=== PATIENT | male | born 1935 | race Caucasian/White ===

== ENCOUNTER 2017-10-21 19:03 | Emergency (ER) | payer MEDICARE ==
[~2017-10-21] VITALS: Ht 170.2 cm; Wt 65.5 kg
[~2017-10-21 19:03] MED LIST: BAYER CHEWABLE81 MG PO; DUONEB 2.5-0.5 M3 ML INH; FERROUS SULFAT325 MG PO; IMDUR30 MG PO; KLOR-CON M2020 MEQ PO; LANOXIN125 MCG PO; LASIX40 MG PO; LEVAQUIN500 MG PO; MEDROL DOSE PACK4 MG PO; MIRALAX17 GM PO; NORCO 10/325 TA1 TA1 PO; PLAVIX75 MG PO; PROTONIX20 MG PO; QVAR8.7 GM INH; RESTORIL15 MG PO; ROBITUSSIN100 MG/5 M PO; SINGULAIR10 MG; VENTOLIN HFA18 GM INH; VITAMIN B-1000 MCG/M IM; XANAX0.5 MG PO; XOPENEX 1.1.25 MG/3 NEB; ZOCOR20 MG PO; ZOLOFT50 MG PO
[2017-10-21 19:33] VITALS: Ht 170.2 cm; Wt 65.5 kg
[2017-10-21] MEDS ORDERED: K-TAB10 MEQ PO (19:36)
[2017-10-21] MEDS ORDERED: XANAX0.5 MG PO (19:37)
[2017-10-22] MEDS ORDERED: THALOMID50 MG PO (00:50)
[2017-10-22] MEDS ORDERED: TORADOL10 MG PO (00:50)
[2017-10-22 01:12] VITALS: BP 110/69
== END 2017-10-22 01:12 | disposition home or self-care (01) ==
LOC: D.ER 19:03
DX: S70.01XA Contusion of right hip, initial encounter (principal); W19.XXXA Unspecified fall, initial encounter; Y93.89 Activity, other specified; Y92.019 Unspecified place in single-family (private) house as the place of occurrence of the external cause; Z86.79 Personal history of other diseases of the circulatory system; J44.9 Chronic obstructive pulmonary disease, unspecified; I10 Essential (primary) hypertension; Z99.81 Dependence on supplemental oxygen

== ENCOUNTER 2018-06-21 10:45 | Inpatient (IN) | payer MEDICARE ==
[~2018-06-21] VITALS: Ht 170.2 cm; Wt 64.9 kg
[~2018-06-21 10:45] MED LIST changes: +K-TAB10 MEQ PO; -SINGULAIR10 MG; +SINGULAIR10 MG PO; +THALOMID50 MG PO; +TORADOL10 MG PO
[2018-06-21 12:00] VITALS: BP 122/64
[2018-06-21 14:00] LABS: BASOPHILS 0.2 % (0-2); EOSINOPHILS 1.2 % (0-7); HEMATOCRIT 46.6 % (42.0-54.0); HEMOGLOBIN 15.7 g/dL (13.5-17.5); IMMATURE GRANULOCYTES 0.3 % (0-5); LYMPHOCYTES 10.3 % (15-50); MCH 30.1 pg (26.0-34.0); MCHC 33.7 g/dL (31.0-37.0); MCV 89.3 fL (80.0-100.0); MEAN PLATELET VOLUME 10.8 fL (7.4-10.4); RBC 5.22 10x6/uL (4.20-6.10); RDW 14.9 % (11.5-14.5); WBC 9.2 10x3/uL (4.8-10.8)
[2018-06-21 14:10] LABS: PLATELET COUNT 143 10x3/uL (130-400)
[2018-06-21 14:13] LABS: INR 1.18 (0.85-1.17); PROTIME 14.5 SECONDS (11.6-15.0)
[2018-06-21 14:19] LABS: ALBUMIN 3.2 g/dL (3.4-5.0); ANION GAP 13.5 mmol/L (8-16); BILIRUBIN - TOTAL 0.99 mg/dL (0.2-1.3); CALCIUM 8.4 mg/dL (8.5-10.1); CARBON DIOXIDE 27.6 mmol/L (21.0-32.0); CREATININE - SERUM 1.2 mg/dL (0.6-1.3); POTASSIUM - SERUM 4.1 mmol/L (3.5-5.1); PROTEIN - SERUM 6.7 g/dL (6.4-8.2)
[2018-06-21] MEDS ORDERED: BAYER CHEWABLE81 MG PO (15:49)
[2018-06-21 15:50] VITALS: BP 156/78; BMI 22.4
--- NOTE | 2018-06-21 16:12 | NUR ---
REC'D PT 1530 FROM ER STAFF. ASSISTED PT TO BED WITH MINIMAL ASSIST. DENIES PAIN. NO S/S OF ACUTE DISTRESS. CL IN PLACE.
--- NOTE | 2018-06-21 18:42 | NUR ---
POURED PIPE MAKER ASSISTING PT TO THE BR. NO S/S OF ACUTE DISTRESS. CL IN PLACE.
[2018-06-21 20:00] VITALS: BP 133/89
[2018-06-22] VITALS: BP 130/76
[2018-06-22 03:00] VITALS: BP 131/78
--- NOTE | 2018-06-22 07:30 | NUR ---
MORNING ASSESSMENT COMPLETE. SEE ASSESSMENT FLOWSHEET FOR FURTHER DETAILS. PT LYING IN BED. DENIES NEEDS AT THIS TIME. CL IN REACH. BED ALARM ON. ALL FALL PRECAUTIONS IN PLACE.
[2018-06-22 08:44] VITALS: BP 123/75
[2018-06-22 10:10] LABS: BASOPHILS 0.4 % (0-2); EOSINOPHILS 5.5 % (0-7); HEMATOCRIT 44.9 % (42.0-54.0); HEMOGLOBIN 14.8 g/dL (13.5-17.5); IMMATURE GRANULOCYTES 0.3 % (0-5); LYMPHOCYTES 13.4 % (15-50); MCH 29.6 pg (26.0-34.0); MCV 89.8 fL (80.0-100.0); MEAN PLATELET VOLUME 11.4 fL (7.4-10.4); MONOCYTES 8.5 % (2-11); NEUTROPHILS 71.9 % (40-80); PLATELET COUNT 150 10x3/uL (130-400); RDW 14.9 % (11.5-14.5); WBC 6.9 10x3/uL (4.8-10.8)
[2018-06-22 10:32] LABS: ALBUMIN 2.8 g/dL (3.4-5.0); ANION GAP 10.9 mmol/L (8-16); BILIRUBIN - TOTAL 1.35 mg/dL (0.2-1.3); CALCIUM 8.2 mg/dL (8.5-10.1); CARBON DIOXIDE 27.8 mmol/L (21.0-32.0); CREATININE - SERUM 1.1 mg/dL (0.6-1.3); POTASSIUM - SERUM 3.7 mmol/L (3.5-5.1); PROTEIN - SERUM 6.2 g/dL (6.4-8.2)
[2018-06-22 12:05] VITALS: Ht 170.2 cm; Wt 64.9 kg
[2018-06-22 12:38] VITALS: BP 108/81
[2018-06-22 17:05] LABS: APPEARANCE CLEAR (CLEAR); BILIRUBIN NEGATIVE (NEGATIVE); COLOR YELLOW (YELLOW); GLUCOSE NEGATIVE (NEGATIVE); KETONE NEGATIVE (NEGATIVE); NITRITE NEGATIVE (NEGATIVE); PROTEIN NEGATIVE (NEGATIVE)
[2018-06-22 17:17] VITALS: BP 147/91
[2018-06-22 21:18] VITALS: BP 145/79
--- NOTE | 2018-06-23 03:37 | NUR ---
REC'D. CHG OF SHIFT LYING ON RIGHT SIDE.EYES CLOSED RESP. DEEP AND EVEN.EMPTIED 350CC CLOUDY YELLOW URINE FROME URINAL.FALL PRECAUTIONS IN PLACE.WILL CONTINUE TO MONITOR FOR ANY CHGES. IN NEUROVASCULAR STATUS AND FOLLOW CURRENT PLAN OF CARE
--- NOTE | 2018-06-23 04:40 | NUR ---
I have reviewed this patient and I concur with the Shift Assessment completed by the Licensed Practical Nurse today this shift.
[2018-06-23 04:42] LABS: BASOPHILS 0.4 % (0-2); EOSINOPHILS 5.3 % (0-7); HEMATOCRIT 43.2 % (42.0-54.0); HEMOGLOBIN 14.4 g/dL (13.5-17.5); IMMATURE GRANULOCYTES 0.3 % (0-5); LYMPHOCYTES 14.8 % (15-50); MCH 29.7 pg (26.0-34.0); MCHC 33.3 g/dL (31.0-37.0); MCV 89.1 fL (80.0-100.0); MONOCYTES 10.5 % (2-11); NEUTROPHILS 68.7 % (40-80); PLATELET COUNT 139 10x3/uL (130-400); RBC 4.85 10x6/uL (4.20-6.10); RDW 14.8 % (11.5-14.5); WBC 7.5 10x3/uL (4.8-10.8)
[2018-06-23 05:05] LABS: ANION GAP 9.5 mmol/L (8-16); CALCIUM 7.7 mg/dL (8.5-10.1); CARBON DIOXIDE 25.9 mmol/L (21.0-32.0); POTASSIUM - SERUM 3.4 mmol/L (3.5-5.1)
[2018-06-23 05:08] LABS: CREATININE - SERUM 1.4 mg/dL (0.6-1.3)
[2018-06-23 05:50] VITALS: BP 130/85
--- NOTE | 2018-06-23 07:30 | NUR ---
REC'D IN BED AWAKE AND ALERT. RESP EVEN AND UNLABORED WITH NO DISTRESS NOTED. CAN EXPRESS NEEDS AND WANTS. DENIES ANY PAIN OR DISCOMFORT. C/L IN REACH AT BEDSIDE.
[2018-06-23 09:46] VITALS: BP 127/83
--- NOTE | 2018-06-23 14:12 | MORECARE ---
CASE MANAGEMENT DISCHARGE SUMMARY PATIENT: JUNIOR PFEIFFER UNIT: [id number] ADM DATE: 06/21/18 AGE: 82 : 34 SEX: M ROOM/BED: D.2206 AUTHOR: YAS ZULUAGA PHYSICIAN: REFERRING PHYSICIAN: WAQAR OMER MD DATE OF SERVICE: 06/23/18 Discharge Plan Patient Name: JUNIOR PFEIFFER [facility] [facility] 1935 Planned Disposition: Home or Self Care Anticipated Discharge Date: Discharge Date: Expected LOS: Initial Reviewer: [email or web address] Initial Review Date: 06/21/2018 Generated: 06/23/18 3:12 pm Patient Name: JUNIOR PFEIFFER Page 10842 at 1412 All edits/amendments must be made on the electronic document DICTATION DATE: 06/23/18 1411 COREROOM FOUNDRY LABORER: JASS 06/23/18 1411 RPT#: [id number] DC DATE: STATUS: ADM IN [facility] [address] [place] [address] END OF REPORT
--- NOTE | 2018-06-23 14:22 | MORECARE ---
CASE MANAGEMENT DISCHARGE SUMMARY PATIENT: JUNIOR PFEIFFER UNIT: [id number] ADM DATE: 06/21/18 AGE: 82 : 34 SEX: M ROOM/BED: D.2206 AUTHOR: ZAN,DOC PHYSICIAN: REFERRING PHYSICIAN: WAQAR OMER MD DATE OF SERVICE: 06/23/18 Discharge Plan Patient Name: JUNIOR PFEIFFER Facility: [facility]:[place] : 1935 Planned Disposition: Home or Self Care Anticipated Discharge Date: Discharge Date: Expected LOS: Initial Reviewer: [email or web address] Initial Review Date: 06/21/2018 Generated: 06/23/18 3:22 pm Comments DCP- Discharge Planning Updated by [id number]: Honey Silva on 06/23/18 1:[address] Patient Name: JUNIOR PFEIFFER Admission Status: ER Accout number: [id number] Admission Date: 06-21-2018 : 1935 Admission Diagnosis:PAIN IN LEFT HIP Attending: WAQAR OMER Current LOS: 2 Anticipated DC Date: Planned Disposition: Home or Self Care Primary Insurance: [employer] CHOICE PPO MCR ADVANT Discharge Planning Comments: CM met with patient to assess discharge planning needs. Patient stated that he lives with his brother in law where he is independent with his care. He has a nebulizer, walker, cane, concentrator, portable o2. He states a company from [place] is the one who supplies his O2. He stated that either his son or daughter in law will be his funeral limousine driver home. He feels safe to discharge home. He does not want home health at this time. IMM served and explained. CM will continue to follow and assist with DC planning as needed Hand Cementer: Honey Silva DCPIA - Discharge Planning Initial Assessment Updated by [id number]: Honey Silva on 06/23/18 2:12 pm * Is the patient Alert and Oriented? Yes * How many steps to enter\exit or inside your home? * PCP JUANITA * Pharmacy [facility] [address] * Preadmission Environment Home with Family * ADLs Independent * Equipment Cane Nebulizer Oxygen Rolling Walker * Other Equipment CONCENTRATOR PORTABLE O2 * List name and contact numbers for known caregivers / representatives who currently or will assist patient after discharge: RADHA PFEIFFER [phone] * Verbal permission to speak to the caregivers and representatives has been obtained from the patient. N/A * Community resources currently utilized None * Additional services required to return to the preadmission environment? No * Can the patient safely return to the preadmission environment? Yes * Has this patient been hospitalized within the prior 30 days at any hospital? No Coverage Notice Reviewer: [email or web address] Asia Silva Notice Issued Date-Time: 06/23/2018 1:45 Notice Type: IM Discharge Notice Notice Delivered To: Patient Relationship to Patient: Pump Installation And Servicer Name: Delivery Method: HAND - Hand Delivered Azalia Days: Prior Verbal Notification: Recipient Understood Notice: Yes Recipient Signature: Yes Med Rec Note Co-signed by Attending: Coverage Notice Comment: Last DP export: 06/23/18 1:12 p Patient Name: JUNIOR PEFIFFER Page 68493 at 1422 All edits/amendments must be made on the electronic document DICTATION DATE: 06/23/18 142 IRRIGATION SYSTEM OPERATOR: JASS 06/23/18 142 RPT#: [id number] DC DATE: STATUS: ADM IN [facility] [address] [place] [address] END OF REPORT
[2018-06-23 15:10] VITALS: BP 121/85
--- NOTE | 2018-06-23 16:48 | NUR ---
I have reviewed this patient and I concur with the Shift Assessment completed by the Licensed Practical Nurse today this shift.
[2018-06-23 17:24] VITALS: BP 128/86
[2018-06-23 21:37] VITALS: BP 124/79
[2018-06-24 01:33] VITALS: BP 138/74
--- NOTE | 2018-06-24 01:52 | NUR ---
REC'D. CHGE OF SHIFT SITTING 40 DEGREE'S IN BED WATCHING TV WITH WORDS VISIBLE.GROSSLY HARD OF HEARING.HEARING AIDES AT BEDSIDE. DENIES ANY PAIN OR DISCOMFORT AT PRESESNT TIME. WILL CONTINUE TO MONITOR FOR ANY CHGES AND FOLLOW CURRENT PLAN OF CARE
[2018-06-24 04:48] VITALS: BP 122/71
--- NOTE | 2018-06-24 04:48 | NUR ---
I have reviewed this patient and I concur with the Shift Assessment completed by the Licensed Practical Nurse today this shift.
[2018-06-24 05:14] LABS: BASOPHILS 0.4 % (0-2); EOSINOPHILS 5.8 % (0-7); HEMATOCRIT 41.2 % (42.0-54.0); HEMOGLOBIN 13.7 g/dL (13.5-17.5); IMMATURE GRANULOCYTES 0.3 % (0-5); LYMPHOCYTES 14.6 % (15-50); MCH 29.4 pg (26.0-34.0); MCHC 33.3 g/dL (31.0-37.0); MCV 88.4 fL (80.0-100.0); MEAN PLATELET VOLUME 11.1 fL (7.4-10.4); MONOCYTES 10.3 % (2-11); NEUTROPHILS 68.6 % (40-80); PLATELET COUNT 148 10x3/uL (130-400); RBC 4.66 10x6/uL (4.20-6.10); RDW 14.9 % (11.5-14.5); WBC 6.9 10x3/uL (4.8-10.8)
[2018-06-24 05:36] LABS: ANION GAP 11.2 mmol/L (8-16); CALCIUM 7.8 mg/dL (8.5-10.1); CARBON DIOXIDE 27.7 mmol/L (21.0-32.0); CREATININE - SERUM 1.1 mg/dL (0.6-1.3); POTASSIUM - SERUM 3.9 mmol/L (3.5-5.1)
[2018-06-24 10:36] VITALS: BP 130/85
--- NOTE | 2018-06-24 10:55 | NUR ---
REC'D IN BED AWAKE AND ALERT. RESP AND UNLABORED WITH NO DISTRESS NOTED. CAN EXPRESS NEEDS AND WANTS. DENIES ANY PAIN OR DISCOMFORT NOTED AT THIS TIME. ASSESSMENT COMPLETED. C/L IN REACH REACH AT BEDSIDE.
--- NOTE | 2018-06-24 11:11 | MORECARE ---
CASE MANAGEMENT DISCHARGE SUMMARY PATIENT: JUNIOR PFEIFFER UNIT: [id number] ADM DATE: 06/21/18 AGE: 82 : 34 SEX: M ROOM/BED: D.2206 AUTHOR: YAS ZULUAGA PHYSICIAN: REFERRING PHYSICIAN: WAQAR OMER MD DATE OF SERVICE: 06/24/18 Discharge Plan Patient Name: JUNIOR PFEIFFER Facility: [facility]:[place] : 1935 Planned Disposition: Home or Self Care Anticipated Discharge Date: Discharge Date: Expected LOS: Initial Reviewer: [id number] Initial Review Date: 06/21/2018 Generated: 06/24/18 12:11 pm Comments DCP- Discharge Planning Updated by [id number]: Honey Silva on 06/24/18 10:[address] Patient Name: JUNIOR PFEIFFER Encounter No: [id number] : 1935 Primary Insurance: [employer] CHOICE PPO MCR ADVANT Anticipated DC Date: Planned Disposition: Home or Self Care External Planned Provider: : DCP follow-up note: Patient and family in agreement with discharge plan. House calls will follow patient. No changes to plan. Case management will follow and assist as needed. Honey Silva DCP- Discharge Planning Updated by [email or web address]: Honey Silva on 06/23/18 1:[address] Patient Name: JUNIOR PFEIFFER Admission Status: ER Accout number: [id number] Admission Date: 06-21-2018 : 1935 Admission Diagnosis:PAIN IN LEFT HIP Attending: WAQAR OMER Current LOS: 2 Anticipated DC Date: Planned Disposition: Home or Self Care Primary Insurance: [employer] CHOICE PPO MCR ADVANT Discharge Planning Comments: CM met with patient to assess discharge planning needs. Patient stated that he lives with his brother in law where he is independent with his care. He has a nebulizer, walker, cane, concentrator, portable o2. He states a company from [place] is the one who supplies his O2. He stated that either his son or daughter in law will be his cdl driver home. He feels safe to discharge home. He does not want home health at this time. IMM served and explained. CM will continue to follow and assist with DC planning as needed Order Taker: Honey Silva DCPIA - Discharge Planning Initial Assessment Updated by [id number]: Honey Silva on 06/23/18 2:12 pm * Is the patient Alert and Oriented? Yes * How many steps to enter\exit or inside your home? * PCP JUANITA * Pharmacy [facility] [address] * Preadmission Environment Home with Family * ADLs Independent * Equipment Cane Nebulizer Oxygen Rolling Walker * Other Equipment CONCENTRATOR PORTABLE O2 * List name and contact numbers for known caregivers / representatives who currently or will assist patient after discharge: RADHA PFEIFFER [phone] * Verbal permission to speak to the caregivers and representatives has been obtained from the patient. N/A * Community resources currently utilized None * Additional services required to return to the preadmission environment? No * Can the patient safely return to the preadmission environment? Yes * Has this patient been hospitalized within the prior 30 days at any hospital? No Coverage Notice Reviewer: [id number] - Honey Silva Notice Issued Date-Time: 06/23/2018 1:45 Notice Type: IM Discharge Notice Notice Delivered To: Patient Relationship to Patient: Co Op Name: Delivery Method: HAND - Hand Delivered Azalia Days: Prior Verbal Notification: Recipient Understood Notice: Yes Recipient Signature: Yes Med Rec Note Co-signed by Attending: Coverage Notice Comment: Last DP export: 06/23/18 1:22 p Patient Name: JUNIOR PFEIFFER Page 42040 at 1111 All edits/amendments must be made on the electronic document DICTATION DATE: 06/24/18 111 VICE PRESIDENT COMPLIANCE: JASS 06/24/18 1110 RPT#: [id number] DC DATE: STATUS: ADM IN [facility] [address] [place] [address] END OF REPORT
--- NOTE | 2018-06-24 13:44 | NUR ---
DC HOME AT THIS DC INSTRUCTION GIVEN TO PT AND SIVA ( DAUGHTER IN LAW). BOTH VOICE UNDERSTANDING OF DC ORDERS. PT INSTABLE CONDITION UPON DEPARTURE.
== END 2018-06-24 13:46 | disposition home or self-care (01) | DRG 556 ==
LOC: D.ER 10:45 → D.MS 14:23 → D.EDHOLD 14:23 → D.MS 15:09
PROVIDERS: Emergency Medicine; ADMIT Internal Medicine Nephrology; ATTEND Internal Medicine Nephrology
DX: M25.552 Pain in left hip (principal); J96.11 Chronic respiratory failure with hypoxia; W06.XXXA Fall from bed, initial encounter; I10 Essential (primary) hypertension; I25.10 Atherosclerotic heart disease of native coronary artery without angina pectoris; J44.9 Chronic obstructive pulmonary disease, unspecified; J45.909 Unspecified asthma, uncomplicated; I50.9 Heart failure, unspecified

== ENCOUNTER 2019-02-16 06:38 | Day surgery (SDC) | payer MEDICARE ==
[~2019-02-16] VITALS: Ht 170.2 cm; Wt 62.1 kg
[~2019-02-16 06:38] MED LIST changes: +ADVIL200 MG PO; +FISH OIL 1,0001 CA1 PO
[2019-02-16 08:00] LABS: BASOPHILS 0.3 % (0-2); EOSINOPHILS 1.7 % (0-7); HEMATOCRIT 42.9 % (42.0-54.0); HEMOGLOBIN 13.9 g/dL (13.5-17.5); IMMATURE GRANULOCYTES 0.3 % (0-5); MCH 29.3 pg (26.0-34.0); MCHC 32.4 g/dL (31.0-37.0); MCV 90.3 fL (80.0-100.0); MEAN PLATELET VOLUME 11.2 fL (7.4-10.4); MONOCYTES 7.6 % (2-11); NEUTROPHILS 68.1 % (40-80); RBC 4.75 10x6/uL (4.20-6.10); RDW 15.3 % (11.5-14.5); WBC 5.9 10x3/uL (4.8-10.8)
[2019-02-16 08:01] LABS: PLATELET COUNT 199 10x3/uL (130-400)
[2019-02-16 08:03] LABS: ANION GAP 12.8 mmol/L (8-16); CALCIUM 8.7 mg/dL (8.5-10.1); CARBON DIOXIDE 27.3 mmol/L (21.0-32.0); CREATININE - SERUM 1.1 mg/dL (0.6-1.3); POTASSIUM - SERUM 4.1 mmol/L (3.5-5.1)
[2019-02-16] MEDS ORDERED: ALBUTEROL SULF8.5 GM INH (08:10)
[2019-02-16 08:17] VITALS: BP 128/90; Ht 170.2 cm; Wt 62.1 kg
--- NOTE | 2019-02-16 08:27 | NUR ---
CALLED ANESTHESIA ([facility]) AT THIS TIME TO INFORM THAT PT HAS A FIB UPON EKG.
[2019-02-16] MEDS ORDERED: HYDROCODON-ACE1 EA10 PO (10:26)
--- NOTE | 2019-02-16 11:53 | NUR ---
PT AMBULATED TO BATHROOM WITH ASSISTANCE AT THIS TIME, UNALB TO VOID AT THIS TIME.
--- NOTE | 2019-02-16 12:11 | NUR ---
PT STILL UNABLE TO URINATE AT THIS TIME.
--- NOTE | 2019-02-16 15:10 | NUR ---
1435 REPORT TO Carola HARRELL R.N.. Abhi HOLT R.N.
--- NOTE | 2019-02-23 14:22 | OP ---
PATIENT NAME: JUNIOR PFEIFFER MEDICAL RECORD: [id number] :33 LOCATION:D.OPS ADMISSION DATE: SURGEON: CHRIST SMITH MD DATE OF OPERATION: 02/16/2019 PREOPERATIVE DIAGNOSES: 1. Hemorrhoids. 2. Hematochezia. 3. Chronic obstructive pulmonary disease. 4. Congestive heart failure, undifferentiated. POSTOPERATIVE DIAGNOSES: 1. Hemorrhoids. 2. Hematochezia. 3. Chronic obstructive pulmonary disease. 4. Congestive heart failure, undifferentiated. PROCEDURES: 1. Flexible sigmoidoscopy. 2. Hemorrhoidectomy times 2. SURGEON: Christ Smith MD REPORT OF PROCEDURE: The patient was placed in lithotomy position and Olympus anoscope was advanced through the anus. We were able to pass the scope up to about 90 cm. This took us to the splenic flexure. As we pulled back, we saw no evidence of any active bleeding. The patient had mild diverticulosis of the descending colon and extensive diverticulosis of the sigmoid colon. We did retroflex views of the perianal region and could see that the patient did have some small internal hemorrhoids. The patient did have very large external hemorrhoids bilaterally though. At this point, the insufflation and the scope were removed. The perianal region was prepped and draped in sterile fashion. We approached the left side first. A stitch was placed at the base of the large left lateral hemorrhoid. A 2-0 chromic was tied down tightly to the distal rectal tissue. We then used electrocautery to excise this hemorrhoid with care taken not to injure the patient's sphincteric musculature. Once this hemorrhoid was completely excised, then we treated the area with electrocautery. The wound was then irrigated out with normal saline. The previously placed suture was used to close the defect in a running locked fashion. We then approached the right side of the anus where the patient had another large external hemorrhoid. A 2-0 chromic was placed at the base of this and this was tied down tightly. The hemorrhoidal tissue was excised using electrocautery. We then irrigated out the wound and stopped any bleeding using electrocautery. The previously placed stitch was run in a locking fashion to reapproximate the edges of the wound. The patient's anal tissue did not appear to be too tight. We were able to irrigate out the wound one last time and assured there was no sign of any active bleeding. A piece of Gelfoam dipped in Americaine was placed into the distal rectum and a dressing was applied. A total of 6 mL of 0.25% Marcaine with epinephrine was infused into the tissue near the incisions. COMPLICATIONS: None. CONDITION: Stable. ANESTHESIA: General endotracheal and local. OPERATIVE REPORT [id number] JUNIOR PFEIFFER BLOOD LOSS: 30 mL. TRANSINT:[id number] Voice Confirmation ID: [id number] DOCUMENT ID: [id number] CHRIST SMITH MD at 1422 CC: SHALOM GRANT MD [id number] DICTATION DATE: 02/16/19 1031 INTERNAL COMMUNICATIONS WRITER: 02/16/19 1154 [facility] 02/16/19 [id number] [place] [address]
== END 2019-02-16 16:50 | disposition home or self-care (01) ==
LOC: D.OPS 06:38
PROVIDERS: ATTEND Surgery
DX: K64.9 Unspecified hemorrhoids (principal); K92.1 Melena; J44.9 Chronic obstructive pulmonary disease, unspecified; I50.9 Heart failure, unspecified; K57.90 Diverticulosis of intestine, part unspecified, without perforation or abscess without bleeding

== ENCOUNTER 2019-04-11 11:54 | Inpatient (IN) | payer MEDICARE ==
[~2019-04-11] VITALS: Ht 170.2 cm; Wt 55.9 kg
[~2019-04-11 11:54] MED LIST changes: +ALBUTEROL SULF8.5 GM INH; +HYDROCODON-ACE1 EA10 PO
[2019-04-11 12:47] LABS: BASOPHILS 0.2 % (0-2); EOSINOPHILS 0 % (0-7); HEMATOCRIT 50.5 % (42.0-54.0); IMMATURE GRANULOCYTES 0.4 % (0-5); LYMPHOCYTES 21.7 % (15-50); MCH 29.3 pg (26.0-34.0); MCHC 33.7 g/dL (31.0-37.0); MCV 86.9 fL (80.0-100.0); MEAN PLATELET VOLUME 10.2 fL (7.4-10.4); MONOCYTES 6.7 % (2-11); RBC 5.81 10x6/uL (4.20-6.10); RDW 14.8 % (11.5-14.5); WBC 8.6 10x3/uL (4.8-10.8)
[2019-04-11 12:54] LABS: PLATELET COUNT 147 10x3/uL (130-400)
[2019-04-11 12:56] LABS: APTT 43.4 SECONDS (22.8-39.4); INR 1.11 (0.85-1.17); PROTIME 13.8 SECONDS (11.6-15.0)
[2019-04-11 12:58] LABS: CALC OSMOLALITY 279 mosm/kg (275-300); CALCIUM 8.1 mg/dL (8.5-10.1); CARBON DIOXIDE 27.3 mmol/L (21.0-32.0); CHLORIDE - SERUM 98 mmol/L (98-107); CREATININE - SERUM 1.6 mg/dL (0.6-1.3); GLUCOSE 99 mg/dL (74-106); POTASSIUM - SERUM 4.1 mmol/L (3.5-5.1); SODIUM 134 mmol/L (136-145); UREA NITROGEN 45 mg/dL (7-18); eGFR NON AFRICAN AMERICAN 44 mL/min (90-120)
[2019-04-11 13:19] LABS: ALBUMIN 2.9 g/dL (3.4-5.0); ALKALINE PHOSPHATASE 85 U/L (46-116); ALT (SGPT) 19 U/L (10-68); CKMB 1.3 U/L (0.0-3.6); CREATINE KINASE 34 UL (21-232); PROTEIN - SERUM 6.4 g/dL (6.4-8.2)
[2019-04-11 13:21] LABS: TROPONIN-I 0.502 ng/mL (0.000-0.060)
--- NOTE | 2019-04-11 14:14 | NUR ---
STERI STRIPS PLACED ON FOREHEAD OVER 2 LACERATIONS FROM FALL 2 DAYS AGO
--- NOTE | 2019-04-11 14:54 | NUR ---
DR. MCLAUGHLIN IN TO SEE PT.
[2019-04-11] MEDS ORDERED: BAYER CHEWABLE81 MG PO (17:27)
[2019-04-11 17:30] VITALS: BP 122/62; BMI 19.9
[2019-04-11] MEDS ORDERED: ALDACTONE50 MG PO (17:30)
--- NOTE | 2019-04-11 20:30 | NUR ---
PT IS RESTING IN BED WITH EYES OPEN. ALERT AND ORIENTED X 3. PT DENIES ANY PAIN OR DISCOMFORT AT THIS TIME. VSS. NO NEEDS VOICED. IV INFUSING TO RIGHT HAND WITHOUT DIFFICULTY. NO REDNESS OR EDEMA NOTED AT THE INSERTION SITE. SR'S ARE UP X 2 IN BED. CALL LIGHT AND BEDSIDE TABLE ARE WITHIN EASY REACH. O2 IS ON @ 2LPM PER NC. NO SOB NOTED.
[2019-04-11 20:45] VITALS: BP 106/58
[2019-04-11 20:47] LABS: CKMB 1.7 U/L (0.0-3.6); CREATINE KINASE 28 UL (21-232)
[2019-04-11 21:22] LABS: APPEARANCE CLEAR (CLEAR); BILIRUBIN NEGATIVE (NEGATIVE); COLOR YELLOW (YELLOW); GLUCOSE NEGATIVE (NEGATIVE); KETONE NEGATIVE (NEGATIVE); NITRITE NEGATIVE (NEGATIVE); PROTEIN NEGATIVE (NEGATIVE); SPECIFIC GRAVITY 1.015 (1.005-1.020); UROBILINOGEN NORMAL (NORMAL)
--- NOTE | 2019-04-11 21:29 | NUR ---
PT IS RESTING IN BED WITH EYES OPEN. NO NEEDS VOICED. USING URINAL PRN. UA SENT TO LAB.
[2019-04-12 00:15] VITALS: BP 100/71
--- NOTE | 2019-04-12 02:01 | NUR ---
PT PULLED IV FROM HIS OWN ARM. REFUSING TO BE RESITED AT THIS TIME.
[2019-04-12 03:14] LABS: CKMB 1.6 U/L (0.0-3.6); CREATINE KINASE 22 UL (21-232)
--- NOTE | 2019-04-12 03:29 | NUR ---
PT RESTING IN BED WITH EYES OPEN. NO NEEDS VOICED.
[2019-04-12 03:34] LABS: TROPONIN-I 0.379 ng/mL (0.000-0.060)
[2019-04-12 04:18] VITALS: BP 107/58
[2019-04-12 08:39] VITALS: BP 119/73
--- NOTE | 2019-04-12 10:08 | NUR ---
PT WAS RESTING PEACEFULLY WHEN I ENTERED THIS A.M. WOKE EASILY AND TOOK ASPRIN. SINCE THAT POINT, PT HAS BEEN IN AND OUT OF THE ROOM STATING HE'S LEAVING. PT IS CONFUSED, A/O ONLY TO SELF. BED ALARM AND CHAIR ALARM PLACED. CALLED STEPHANIA MENDES TO MAKE HER AWARE OF WHATS GOING ON. PT PULLED I/V OUT LAST NIGHT, REFUSED TO LET THEM PUT ANOTHER IN. ATTEMPTED AGAIN THIS MORNING.
--- NOTE | 2019-04-12 10:24 | NUR ---
SPOKE TO PTS SON, HE STATED THAT THE PT IS NOT TYPICALLY THIS CONFUSED BUT THAT IT DOES HAPPEN WHEN HE'S TAKEN OUT FO HIS ROUTINE D/T THE DEMENTIA. SON STATES HE'LL BE HERE SOON AND SIT WITH HIM FOR LONG HE CAN. CL IN REACH, SRX2. AID HAS PT IN THE SHOWER, PT SMELLED OF STALE URINE, CLOTHES WERE DRY, BED DRY. HE WALKS WELL UNASSISTED BUT D/T PREVIOUS FALLS AND CONFUSION, WILL REMAIN AN ASSIST.
[2019-04-12 12:09] VITALS: BP 134/83
--- NOTE | 2019-04-12 14:47 | NUR ---
OT NOTE: PT COMPLETED SUPINE TO SIT WITH CGA. PT COMPLETED SIT TO STAND WITH CGA. PT COMPLETED LB HYGIENE TASKS WITH MAX A. PT REQUIRED EXTENSIVE COG CUES FOR FUNCTIONAL TASK SEQUENCING AND EXTRA TIME. [phone] THANK YOU, JOEY CHAVES
--- NOTE | 2019-04-12 14:57 | NUR ---
Rehab Note- Acute INpatient Rehab prescreen order received. The patient has [employer] insurance and will require a PreAuth. OT & PT Evals completed- PT noting that recommends dc home with use of RW, the patient is noted to have good family support. Spoke with YASMANY Hicks that the patient is too high level & will be denied by [employer] managed care insurance. Thank you for this referral! Aleida Lee RN Clinical Liaison, [facility] Rehab
--- NOTE | 2019-04-12 16:27 | NUR ---
PTS SON HAD TO LEAVE, SINCE THEN PT HAS BEEN UP AND DOWN OUT OF ROOM, REMOVED GOWN AND WALKED AROUND IN PULL UP. REDIRECTS EASILY BUT STATES REPEATEDLY HE NEEDS TO GO HOME. SON STATED HE WOULD BE BACK THIS EVENING. CL IN REACH, SRX2. CHAIR ALARM ON.
--- NOTE | 2019-04-12 17:07 | NUR ---
I have reviewed this patient and I concur with the Shift Assessment completed by the Licensed Practical Nurse today this shift.
[2019-04-12 18:10] VITALS: BP 126/78
--- NOTE | 2019-04-12 20:02 | NUR ---
PT REFUSING IV AT THIS TIME. WILL TRY AGIAN. PT ALERT BUT CONFUSED. RR EVEN AND UNLABORED AT THIS TIME. BED ALARM ON, BED LOW, DOOR OPEN, CALL LIGHT WITHIN REACH. WILL CONTINUE TO MONITOR.
[2019-04-13 00:31] VITALS: BP 108/66
--- NOTE | 2019-04-13 01:22 | NUR ---
I have reviewed this patient and I concur with the Shift Assessment completed by the Licensed Practical Nurse today this shift.
[2019-04-13 04:43] VITALS: BP 123/84
--- NOTE | 2019-04-13 04:46 | NUR ---
PT UP AND DOWN ALL NIGHT ORIENTED BUT CONFUSED X3. PT STILL AT THIS TIME REFUSING IV. ENCOURGED PT FLUIDS. PT ORAL INTAKE OF FLUIDS 64OZ. PT RR EVEN AND UNLABORED AT THIS TIME. BED LOW CALL LIGHT WITHIN REACH. NOEL BED ALARM IN PLACE. WILL CONTINUE TO MONITOR.
--- NOTE | 2019-04-13 07:33 | NUR ---
PATIENT IS RESTING QUIETLY AT THIS TIME. RECIEVED REPORT. HE HAS HIS BED ALARM ON AND DENIES ANY NEEDS. HE HAS A HISTORY OF CONFUSION AND DEMENTIA.
[2019-04-13 08:09] LABS: BASOPHILS 0.1 % (0-2); EOSINOPHILS 0 % (0-7); HEMATOCRIT 47.9 % (42.0-54.0); HEMOGLOBIN 15.7 g/dL (13.5-17.5); IMMATURE GRANULOCYTES 0.5 % (0-5); LYMPHOCYTES 9.2 % (15-50); MCH 28.3 pg (26.0-34.0); MCHC 32.8 g/dL (31.0-37.0); MCV 86.3 fL (80.0-100.0); MEAN PLATELET VOLUME 10.2 fL (7.4-10.4); MONOCYTES 4.5 % (2-11); NEUTROPHILS 85.7 % (40-80); PLATELET COUNT 143 10x3/uL (130-400); RBC 5.55 10x6/uL (4.20-6.10); RDW 15.1 % (11.5-14.5); WBC 8.2 10x3/uL (4.8-10.8)
[2019-04-13 08:22] LABS: ALBUMIN 2.3 g/dL (3.4-5.0); ANION GAP 15.8 mmol/L (8-16); BILIRUBIN - TOTAL 1.11 mg/dL (0.2-1.3); CALCIUM 8.5 mg/dL (8.5-10.1); CREATININE - SERUM 1.4 mg/dL (0.6-1.3); MAGNESIUM - SERUM 2.1 mg/dL (1.8-2.4); POTASSIUM - SERUM 3.8 mmol/L (3.5-5.1); PROTEIN - SERUM 5.9 g/dL (6.4-8.2)
[2019-04-13 08:51] VITALS: BP 123/69
--- NOTE | 2019-04-13 09:57 | NUR ---
PATIENT IS ALERT AND AWAKE , HE IS SITTING UP IN BED AND HIS SON IS AT BEDSIDE. CASE MANAGEMENT IS HERE VISITING HIM.
--- NOTE | 2019-04-13 11:00 | NUR ---
OT NOTE: PT REMAINS VERY CONFUSED..A AND O X 1 ONLY. [place]..BED MOB WITH SBA; ABLE TO AMB IN ROOM WITH BOG CUTTER/MIN ASSIST; FUNCTIONAL TRANSFERS WITH MIN ASSIST; SIMPLE GROOMING WITH VC AND SET UP; MIN ASSIST TO AMB TO TOILET AND MIN ASSIST WITH HYGIENE. AROM EXS WITH VERBAL CUES AND FREQ REST BREAKS. SIVA MARTINO, OTR/L [phone]
--- NOTE | 2019-04-13 11:44 | NUR ---
22 GAUGE PIV PLACED IN LEFT FOREARM. IV FLUIDS GOING AND ANTIBIOTICS. ONE STICK, PATIENT TOLERATED.
[2019-04-13 12:34] VITALS: BP 102/76
--- NOTE | 2019-04-13 16:32 | NUR ---
OT NOTE: PT COMPLETED BED MOB TASKS WITH CGA. PT COMPLETED EOB SITTING WITH SBA. PT COMPLETED HAND HYGIENE WITH SET UP. PT COMPLETED BUE AROM EXS AT EOB. [phone] THANK YOU, JOEY CHAVES
--- NOTE | 2019-04-13 16:45 | MORECARE ---
CASE MANAGEMENT DISCHARGE SUMMARY PATIENT: JUNIOR PFEIFFER UNIT: [id number] ADM DATE: 04/11/19 AGE: 83 : 34 SEX: M ROOM/BED: D.2139 AUTHOR: YAS ZULUAGA PHYSICIAN: REFERRING PHYSICIAN: WAQAR OMER MD DATE OF SERVICE: 04/13/19 Discharge Plan Patient Name: JUNIOR PFEIFFER [facility] [facility] 1935 Planned Disposition: Home with Home Health Anticipated Discharge Date: 04/15/19 Discharge Date: Expected LOS: 4 Initial Reviewer: [email or web address] Initial Review Date: 04/13/2019 Generated: 04/13/19 5:44 pm DCPIA - Discharge Planning Initial Assessment Updated by [email or web address]: Eric Nino on 04/13/19 4:38 pm * Is the patient Alert and Oriented? Yes * How many steps to enter\exit or inside your home? NONE * PCP DR. GRANT * [facility] [address] * Preadmission Environment Home with Family * ADLs Partial Dependent * Partial ADLs (Assistance needed) Medication Management * Equipment Nebulizer Oxygen * Other Equipment HOME OXYGEN [facility] - MEDICAL EQUIPMENT PROVIDER * List name and contact numbers for known caregivers / representatives who currently or will assist patient after discharge: RAFA MA, * Verbal permission to speak to the caregivers and representatives has been obtained from the patient. Yes * Community resources currently utilized None * Please name any agencies selected above. NONE * Additional services required to return to the preadmission environment? Yes * Can the patient safely return to the preadmission environment? Yes * Has this patient been hospitalized within the prior 30 days at any hospital? No Patient Name: JUNIRO PFEIFFER Page 89819 at 1645 All edits/amendments must be made on the electronic document DICTATION DATE: 04/13/191643 SENIOR PROCESS ANALYST: JASS 04/13/191643 RPT#: [id number] DC DATE: STATUS: ADM IN [facility] [address] [place] [address] END OF REPORT
--- NOTE | 2019-04-13 16:54 | MORECARE ---
CASE MANAGEMENT DISCHARGE SUMMARY PATIENT: JUNIOR PFEIFFER UNIT: [id number] ADM DATE: 04/11/19 AGE: 83 : 34 SEX: M ROOM/BED: D.4794 AUTHOR: ZAN,DOC PHYSICIAN: REFERRING PHYSICIAN: WAQAR OMER MD DATE OF SERVICE: 04/13/19 Discharge Plan Patient Name: JUNIOR PFEIFFER Facility: [facility]:[place] : 1935 Planned Disposition: Home with Home Health Anticipated Discharge Date: 04/15/19 Discharge Date: Expected LOS: 4 Initial Reviewer: [email or web address] Initial Review Date: 04/13/2019 Generated: 04/13/19 5:53 pm Comments DCP- Discharge Planning Updated by [email or web address]: Eric Nino on 04/13/19 3:[address] Patient Name: JUNIOR PFEIFFER Admission Status: Elective Accout number: [id number] Admission Date: 04-11-2019 : 1935 Admission Diagnosis: Attending: WAQAR OMER Current LOS: 2 Anticipated DC Date: 04-15-2019 Planned Disposition: Home with Home Health Primary Insurance: [employer]NA CHOICE PPO [facility] PLANNED EXTERNAL PROVIDER: [facility] Discharge Planning Comments: CM MET WITH PT AND SON IN ROOM TO DISCUSS DISCHARGE PLANNING AND NEEDS. JUNIOR PFEIFFER provided verbal consent to discuss current and ongoing needs with/in the presence of: SONRADHA. PT REPORTS LIVING AT HOME INDEPENDENTLY WITH SON. PT'S SON REPORTS TAKING CARE OF PT'S MEDICATIONS PT HAS DEMENTIA. PT HAS NEBULIZER AND OXYGEN FROM [facility] IN [place]. PT HAS NO OUTSIDE SERVICES ASSISTING IN THE HOME. CM DISCUSSED AVAILABILITY OF HOME HEALTH, REHAB SERVICES AND MEDICAL EQUIPMENT. CM DISCUSSED THAT PT WAS TOO HIGH FUNCTIONING FOR INPATIENT REHAB, DISCUSSED OPTIONS. PT'S SON DOES NOT WANT PT IN [facility] AND ASKED FOR HOME HEALTH WITH PHYSICAL THERAPY. PT'S SON WILL PICK PT UP FOR DISCHARGE HOME. IMPORTANT MESSAGE FROM MEDICARE PROVIDED AND EXPLAINED. CHOICE FOR NO HOME HEALTH PROVIDER SIGNED. CHOICE FOR [facility] MEDICAL EQUIPMENT SIGNED. CM CALLED [facility], , SPOKE TO JEVON WHO TOOK REFERRAL INFORMATION AND WILL ACCEPT PT FOR HOME HEALTH CARE. CM FAXED REFERRAL INFORMATION TO [facility] AT [phone]. CM CALLED [facility], , SPOKE TO RADHA WHO REPORTS THEY WILL NOT HAVE ANY ROLLATOR WALKERS UNTIL FRIDAY OF NEXT WEEK BUT CAN PROCESS ORDER FOR HOSPITAL OR HOME DELIVERY. CM FAXED REFERRAL FOR ROLLATOR WALKER TO [facility] AT [phone]. FOR DISCHARGE, NOTIFY [facility] AT [phone], FAX DISCHARGE INFORMATION TO [facility] AT [phone]. [facility] WILL ARRANGE HOME DELIVERY OF ROLLATOR WALKER WHEN IT COMES IN AROUND 04-20-18. Semiconductor Dies Loader: Eric Nino DCPIA - Discharge Planning Initial Assessment Updated by [id number]: Eric Nino on 04/13/19 4:38 pm * Is the patient Alert and Oriented? Yes * How many steps to enter\exit or inside your home? NONE * PCP DR. GRANT * Pharmacy [facility] [address] * Preadmission Environment Home with Family * ADLs Partial Dependent * Partial ADLs (Assistance needed) Medication Management * Equipment Nebulizer Oxygen * Other Equipment HOME OXYGEN [facility] - MEDICAL EQUIPMENT PROVIDER * List name and contact numbers for known caregivers / representatives who currently or will assist patient after discharge: RADHA PFEIFFER, SON, * Verbal permission to speak to the caregivers and representatives has been obtained from the patient. Yes * Community resources currently utilized None * Please name any agencies selected above. NONE * Additional services required to return to the preadmission environment? Yes * Can the patient safely return to the preadmission environment? Yes * Has this patient been hospitalized within the prior 30 days at any hospital? No External [facility]iders [facility] Next Contact Date: 04/13/2019 Service Request Date: Service Type: Resolution: Reviewer: Comments: External Provider: [facility] Next Contact Date: 04/13/2019 Service Request Date: Service Type: Resolution: Reviewer: Comments: Last DP export: 04/13/19 3:45 Patient Name: JUNIOR PFEIFFER Page 39273 at 4388 All edits/amendments must be made on the electronic document DICTATION DATE: 04/13/19 1653 DATA TECHNICIAN: DM 04/13/19 1653 RPT#: [id number] DC DATE: STATUS: ADM IN [facility] [address] [place] [address] END OF REPORT
--- NOTE | 2019-04-13 19:00 | NUR ---
EVENING ROUNDS COMPLETE. PT SITTING UP IN BED. NO SIGNS OF DISTRESS. AAOX0. PT IS DISORIENTATED TO SELF, SITUATION, PLACE OR TIME. PT DENINES ANY PAIN OR NEEDS AT THIS TIME. CL IN REACH, BED IN LOWEST POSITON.
[2019-04-13 20:00] VITALS: BP 138/95
[2019-04-14] VITALS: BP 121/83
--- NOTE | 2019-04-14 01:54 | NUR ---
PT IS ATTEMPTING TO CLIMB OUT OF BED. THIS NURSE KEEPS ATTEMPTING TO REDIRECT PT. PT IS CONFUSED AND NOT ORIENTATED AT ALL. EACH TIME PT IS REDIRECTED, PT TRYS TO CLIMB OUT OF BED AGAIN. BED ALARM IS ON. CL IN REACH, BED IN LOWEST POSITION.
[2019-04-14 04:00] VITALS: BP 131/83
[2019-04-14 06:11] LABS: ALKALINE PHOSPHATASE 59 U/L (46-116); ALT (SGPT) 12 U/L (10-68); BILIRUBIN - TOTAL 0.84 mg/dL (0.2-1.3); CALC OSMOLALITY 274 mosm/kg (275-300); CALCIUM 7.5 mg/dL (8.5-10.1); CARBON DIOXIDE 20.7 mmol/L (21.0-32.0); CHLORIDE - SERUM 105 mmol/L (98-107); GLUCOSE 82 mg/dL (74-106); POTASSIUM - SERUM 3.8 mmol/L (3.5-5.1); PROTEIN - SERUM 4.8 g/dL (6.4-8.2); SODIUM 136 mmol/L (136-145); UREA NITROGEN 25 mg/dL (7-18); eGFR NON AFRICAN AMERICAN 76 mL/min (90-120)
[2019-04-14 06:12] LABS: BASOPHILS 0 % (0-2); EOSINOPHILS 0 % (0-7); HEMATOCRIT 42.1 % (42.0-54.0); HEMOGLOBIN 13.9 g/dL (13.5-17.5); IMMATURE GRANULOCYTES 0.5 % (0-5); LYMPHOCYTES 14.3 % (15-50); MCH 28.4 pg (26.0-34.0); MCV 85.9 fL (80.0-100.0); MEAN PLATELET VOLUME 10.1 fL (7.4-10.4); MONOCYTES 6.8 % (2-11); NEUTROPHILS 78.4 % (40-80); PLATELET COUNT 140 10x3/uL (130-400); RDW 15.3 % (11.5-14.5)
[2019-04-14 06:33] LABS: WBC 6.1 10x3/uL (4.8-10.8)
[2019-04-14 08:40] VITALS: BP 154/76
[2019-04-14 12:23] VITALS: BP 136/68
--- NOTE | 2019-04-14 14:02 | NUR ---
OT NOTE: PT MORE LETHARGIC HOWEVER, PT WAS APPARENTLY UP THROUGHOUT THE NIGHT. REMAINS CONFUSED AND ORIENTED TO NAME ONLY. LIMITED VERBALIZTION. INCREASED ASSIST WITH EOB SITTING TODAY. LIMITED PARTICIPATION IN UE AROM EXS. SIVA MARTINO, OTR/L
--- NOTE | 2019-04-14 14:49 | NUR ---
OT NOTE: PT NOT RESPONSIVE AND FUNCTIONAL PREVIOUS SESSIONS. COOK NOTIFIED NURSE ON DUTY. PT COMPLETED SUPINE TO SIT WITH MIN-MOD A. PT COMPLETED EOB SITTING WITH SBA. PT COMPLETED FACE WASH WITH SET UP. PT COMPLETED UE AROM AXS. [phone] THANK YOU,JOEY CHAVES
[2019-04-14 16:11] VITALS: BP 147/91
--- NOTE | 2019-04-14 18:04 | NUR ---
I CONCUR WITH THE INSPECTOR WIRE ROPE ASSESSMENT OF THIS PATIENT.
[2019-04-14 20:00] VITALS: BP 121/95
--- NOTE | 2019-04-14 22:00 | NUR ---
FAMILY NOTIFIED OF PTS FALL TODAY. SPOKE WITH HORACIO WHO IS RADHA PFEIFFER'S . HE IS LISTED EMEREGENCY CONTACT.
[2019-04-15] VITALS (7 sets, daily range): BP systolic 104–132; BP diastolic 66–95
--- NOTE | 2019-04-15 03:36 | NUR ---
PT CONTINUES TO ATTEMP TO GET OUT OF BED. HE STATES HE NEEDS TO WORK ON HIS FORKLIFT. HE IS CONFUSED TO PLACE, TIME AND SITUATION. REORIENTED. BED ALARM AND NOEL ALARM ON. JULIANDON ORDERED AND GIVEN TO PT. HIS BED IS LOW, SIDE RAILS UP X 3. CALL LIGHT WITHIN REACH.
[2019-04-15 06:07] LABS: BASOPHILS 0 % (0-2); EOSINOPHILS 0.2 % (0-7); HEMATOCRIT 42.3 % (42.0-54.0); HEMOGLOBIN 13.8 g/dL (13.5-17.5); IMMATURE GRANULOCYTES 0.3 % (0-5); LYMPHOCYTES 11.1 % (15-50); MCH 28.2 pg (26.0-34.0); MCHC 32.6 g/dL (31.0-37.0); MCV 86.5 fL (80.0-100.0); MEAN PLATELET VOLUME 9.7 fL (7.4-10.4); MONOCYTES 5.4 % (2-11); PLATELET COUNT 145 10x3/uL (130-400); RBC 4.89 10x6/uL (4.20-6.10); RDW 15.3 % (11.5-14.5); WBC 6.7 10x3/uL (4.8-10.8)
[2019-04-15 06:18] LABS: ALBUMIN 1.9 g/dL (3.4-5.0); ALKALINE PHOSPHATASE 60 U/L (46-116); ALT (SGPT) 11 U/L (10-68); BILIRUBIN - TOTAL 0.67 mg/dL (0.2-1.3); CALC OSMOLALITY 275 mosm/kg (275-300); CALCIUM 7.9 mg/dL (8.5-10.1); CARBON DIOXIDE 18.4 mmol/L (21.0-32.0); CHLORIDE - SERUM 107 mmol/L (98-107); CREATININE - SERUM 0.9 mg/dL (0.6-1.3); GLUCOSE 80 mg/dL (74-106); MAGNESIUM - SERUM 2.2 mg/dL (1.8-2.4); POTASSIUM - SERUM 3.8 mmol/L (3.5-5.1); PROTEIN - SERUM 5.3 g/dL (6.4-8.2); SODIUM 137 mmol/L (136-145); UREA NITROGEN 21 mg/dL (7-18); eGFR NON AFRICAN AMERICAN 85 mL/min (90-120)
--- NOTE | 2019-04-15 15:13 | MORECARE ---
CASE MANAGEMENT DISCHARGE SUMMARY PATIENT: JUNIOR PFEIFFER UNIT: [id number] ADM DATE: 04/11/19 AGE: 83 : 34 SEX: M ROOM/BED: D.2139 AUTHOR: ZAN,DOC PHYSICIAN: REFERRING PHYSICIAN: WAQAR OMER MD DATE OF SERVICE: 04/15/19 Discharge Plan Patient Name: JUNIOR PFEIFFER Facility: [facility]:[place] : 1935 Planned Disposition: Home with Home Health Anticipated Discharge Date: 04/15/19 Discharge Date: Expected LOS: 4 Initial Reviewer: [id number] Initial Review Date: 04/13/2019 Generated: 04/15/19 4:13 pm Comments DCP- Discharge Planning Updated by [id number]: Eric Nino on 04/15/19 2:[address] Patient Name: JUNIOR PFEIFFER Encounter No: [id number] : 1935 Primary Insurance: [employer] CHOICE PPO MCR ADVANT Anticipated DC Date: 04-15-2019 Planned Disposition: Home with Home Health External Planned Provider: [facility] Discharge Planning Comments: CM RECEIVED FAX FROM [facility] INDICATING THAT THE ROLLATOR WALKER IS NOT IN STOCK. CM CALLED PT'S SON RADHA AND OFFERED TO USE ANOTHER MEDICAL EQUIPMENT COMPANY, BILL DECLINED AND STATES THAT THEY CAN MAKE IT AT HOME WITH PT UNTIL THE WALKER ARRIVES AND HE WANTS TO LEAVE THE ORDER WITH [facility]. CM CALLED AND SPOKE TO LISA OF [facility], , ROLLATOR ON ORDER AND THEY WILL CONTACT PT'S SON WHEN IT COMES IN FOR DELIVERY. FOR DISCHARGE, NOTIFY [facility] AT [phone], FAX DISCHARGE INFORMATION TO [facility] AT [phone]. [facility] WILL ARRANGE HOME DELIVERY OF ROLLATOR WALKER WHEN IT COMES IN AROUND FRIDAY OF NEXT WEEK, 04-20-18. Tongue Binder: Eric Nino DCP- Discharge Planning Updated by [id number]: Eric Nino on 04/13/19 3:[address] Patient Name: JUNIOR PFEIFFER Admission Status: Elective Accout number: [id number] Admission Date: 04-11-2019 : 1935 Admission Diagnosis: Attending: WAQAR OMER Current LOS: 2 Anticipated DC Date: 04-15-2019 Planned Disposition: Home with Home Health Primary Insurance: [employer] CHOICE PPO [facility] ADVANT PLANNED EXTERNAL PROVIDER: [facility] Discharge Planning Comments: CM MET WITH PT AND SON IN ROOM TO DISCUSS DISCHARGE PLANNING AND NEEDS. JUNIOR PFEIFFER provided verbal consent to discuss current and ongoing needs with/in the presence of: SON, RADHA. PT REPORTS LIVING AT HOME INDEPENDENTLY WITH SON. PT'S SON REPORTS TAKING CARE OF PT'S MEDICATIONS PT HAS DEMENTIA. PT HAS NEBULIZER AND OXYGEN FROM [facility] IN [place]. PT HAS NO OUTSIDE SERVICES ASSISTING IN THE HOME. CM DISCUSSED AVAILABILITY OF HOME HEALTH, REHAB SERVICES AND MEDICAL EQUIPMENT. CM DISCUSSED THAT PT WAS TOO HIGH FUNCTIONING FOR INPATIENT REHAB, DISCUSSED OPTIONS. PT'S SON DOES NOT WANT PT IN LONGTERM REHAB AND ASKED FOR HOME HEALTH WITH PHYSICAL THERAPY. PT'S SON WILL PICK PT UP FOR DISCHARGE HOME. IMPORTANT MESSAGE FROM MEDICARE PROVIDED AND EXPLAINED. CHOICE FOR NO HOME HEALTH PROVIDER SIGNED. CHOICE FOR [facility] SIGNED. CM CALLED [facility], , SPOKE TO JEVON WHO TOOK REFERRAL INFORMATION AND WILL ACCEPT PT FOR HOME HEALTH CARE. CM FAXED REFERRAL INFORMATION TO [facility] AT [phone]. CM CALLED [facility], , SPOKE TO RADHA WHO REPORTS THEY WILL NOT HAVE ANY ROLLATOR WALKERS UNTIL FRIDAY OF NEXT WEEK BUT CAN PROCESS ORDER FOR HOSPITAL OR HOME DELIVERY. CM FAXED REFERRAL FOR ROLLATOR WALKER TO [facility] AT [phone]. FOR DISCHARGE, NOTIFY [facility] AT [phone], FAX DISCHARGE INFORMATION TO [facility] AT [phone]. [facility] WILL ARRANGE HOME DELIVERY OF ROLLATOR WALKER WHEN IT COMES IN AROUND 04-20-18. Tongue Binder: Eric Nino DCPIA - Discharge Planning Initial Assessment Updated by [id number]: Eric Nino on 04/13/19 4:38 pm * Is the patient Alert and Oriented? Yes * How many steps to enter\exit or inside your home? NONE * PCP DR. GRANT * Pharmacy [facility] [address] * Preadmission Environment Home with Family * ADLs Partial Dependent * Partial ADLs (Assistance needed) Medication Management * Equipment Nebulizer Oxygen * Other Equipment HOME OXYGEN [facility] - MEDICAL EQUIPMENT PROVIDER * List name and contact numbers for known caregivers / representatives who currently or will assist patient after discharge: RADHA PFEIFFER, RAFA, * Verbal permission to speak to the caregivers and representatives has been obtained from the patient. Yes * Community resources currently utilized None * Please name any agencies selected above. NONE * Additional services required to return to the preadmission environment? Yes * Can the patient safely return to the preadmission environment? Yes * Has this patient been hospitalized within the prior 30 days at any hospital? No Coverage Notice Reviewer: SOHA Nino Notice Issued Date-Time: 04/13/2019 10:00 Notice Type: IM Discharge Notice Notice Delivered To: Family Member Relationship to Patient: Son Medical Office Specialist Name: RADHA PFEIFFER Delivery Method: HAND - Hand Delivered Azalia Days: Prior Verbal Notification: Recipient Understood Notice: Yes Recipient Signature: Yes Med Rec Note Co-signed by Attending: Coverage Notice Comment: Reviewer: SOHA Nino Notice Issued Date-Time: 04/13/2019 10:00 Notice Type: Patient Choice Letter Notice Delivered To: Family Member Relationship to Patient: Son Medical Office Specialist Name: RADHA PFEIFFER Delivery Method: HAND - Hand Delivered Azalia Days: Prior Verbal Notification: Recipient Understood Notice: Yes Recipient Signature: Yes Med Rec Note Co-signed by Attending: Coverage Notice Comment: [facility] NO [facility] PROVIDER PREFERENCE. Last DP export: 04/13/19 3:53 Patient Name: JUNIOR PFEIFFER Page [id number] at 1513 All edits/amendments must be made on the electronic document DICTATION DATE: 04/15/191511 EDUCATION ASSOCIATE: JASS 04/15/191511 RPT#: [id number] DC DATE: STATUS: ADM IN [facility] [address] [place] [address] END OF REPORT
--- NOTE | 2019-04-15 15:20 | NUR ---
OT NOTE: UNABLE TO AROUSE PT UPON FIRST ATTEMPT.. EVEN WITH STERNAL RUB.. NURSING REPORTED THAT HE HAD GEODON AT 4AM..ON 2ND ATTEMPT, PT WAS TRYING TO GET OUT OF BED. ASSISTED PT TO EOB AND THEN TRANSFERRED TO CHAIR WITH MIN ASSIST. SET UP BREAKFAST TRAY AND PT CONSUMED APPROX 40% WITH VERBAL CUES TO STAY ON TASK. AMB PT TO BATHROOM WITH MIN ASSIST; HE WAS ABLE TO PERFORM CLOTHING MGMT AND TOILETING WITH CGA FOR BALANCE. AMB BACK TO CHAIR; PERFORMED SPONGE BATH WITH MIN ASSIST FOR FACE, HANDS, AND ARMS.. MOD ASSIST WITH REMAINDER. PT INCONT OF BOWEL AND REQUIRED EXT ASSIST FOR PERINEAL CARE. BACK TO BED WITH MIN ASSIST. BOTH ALARMS TURNED ON.. PT RESTING COMFORTABLY. SIVA MARTINO, OTR/L [phone]
--- NOTE | 2019-04-15 19:30 | NUR ---
PT COMBATIVE AND REFUSES TO TAKE MEDS. PT RR EVENAND UNLABORED. VITALS STABLE AT THIS TIME. HALDOL WAS GIVEN TO PT. PT BED ALRM IN PLACE, BED LOW, CALL LIGHT WITHIN REACH. WILL CONTINUE TO MONITOR.
--- NOTE | 2019-04-15 23:47 | NUR ---
PT RESTING IN BED ALERT BUT CONFUSED. RR EVEN AND UNLABORED.PT HAS STAYE IN BED, USED CALL LIHT AND TOOK NIGHT MEDS. NO S/S OF DISTRESS AT THIS TIME. VITALS STABLE. WILL CONTINUE TO MONITOR. BED ALARM ON.
--- NOTE | 2019-04-16 01:08 | NUR ---
PT BED ALARM SOUNDING. ASSISTED PT TO SIDE OF BED TO USE URINAL. PT BACK IN BED AT THIS TIME WITH BED ALARM IN PLACE. WILL CONTINUE TO MONITOR.
[2019-04-16 04:00] VITALS: BP 128/88
--- NOTE | 2019-04-16 04:23 | NUR ---
I have reviewed this patient and I concur with the Shift Assessment completed by the Licensed Practical Nurse today this shift.
[2019-04-16 06:00] LABS: BASOPHILS 0 % (0-2); EOSINOPHILS 0.1 % (0-7); HEMATOCRIT 43.3 % (42.0-54.0); HEMOGLOBIN 14.1 g/dL (13.5-17.5); IMMATURE GRANULOCYTES 0.7 % (0-5); LYMPHOCYTES 8.1 % (15-50); MCH 28.2 pg (26.0-34.0); MCHC 32.6 g/dL (31.0-37.0); MCV 86.6 fL (80.0-100.0); MEAN PLATELET VOLUME 9.6 fL (7.4-10.4); MONOCYTES 5.5 % (2-11); NEUTROPHILS 85.6 % (40-80); PLATELET COUNT 186 10x3/uL (130-400); RDW 15.5 % (11.5-14.5); WBC 7.3 10x3/uL (4.8-10.8)
[2019-04-16 06:27] LABS: ALBUMIN 2.2 g/dL (3.4-5.0); ANION GAP 16.6 mmol/L (8-16); BILIRUBIN - TOTAL 1.17 mg/dL (0.2-1.3); CALCIUM 7.9 mg/dL (8.5-10.1); CARBON DIOXIDE 20.1 mmol/L (21.0-32.0); CREATININE - SERUM 1.1 mg/dL (0.6-1.3); MAGNESIUM - SERUM 2.2 mg/dL (1.8-2.4); POTASSIUM - SERUM 3.7 mmol/L (3.5-5.1); PROTEIN - SERUM 5.8 g/dL (6.4-8.2)
--- NOTE | 2019-04-16 07:35 | NUR ---
PT SETTING OFF BED ALARM TRYING TO GET OOB. ENCOURAGED TO USE CALL LIGHT BUT HE IS CONFUSED. TALKING ABOUT NOT TAKING TRIP TO [place]. ASSISTED TO USE URINAL AND BACK TO BED WITH ALARMS IN PLACE.
[2019-04-16 10:22] VITALS: BP 96/58
[2019-04-16 12:14] VITALS: Ht 170.2 cm; Wt 55.9 kg
[2019-04-16 13:53] VITALS: BP 115/90
--- NOTE | 2019-04-16 14:45 | NUR ---
OT NOTE: PT REMAINS VERY CONFUSED.. COGNITIVELY UNABLE TO RETAIN INFORMATION GREATER THAN A FEW SECONDS, WHICH MAKES SAFETY VERY POOR. HE IS ABLE TO AMB WITH WALKER OR ASSIST AND BALANCE IS FAIR+, HOWEVER, HE IS UNAWARE OF ANY SAFETY ISSUES INCLUDING ATTEMPTING TO CLIMB OVER RAILING; EASILY ENTANGLED IN TUBING/LINES, ETC, AND UNAWARE OF SURROUNDINGS. PT WITH ATTEMPTS, BOTH TODAY AND YESTERDAY, TO URINATE IN SINK. STATES THAT HE HAS TO GET TO THIS TOILET, WHICH IS ACTUALLY THE SINK. PT CURRENTLY REQUIRES CONSTANT SUPERVISION FOR SAFETY.. HE IS ORIENTED TO SELF ONLY..CONFUSED TO PLACE, SITUATION, AND SURROUNDINGS. PT ALSO REQUIRING ASSIST WITH ADLS..HE IS INCONSISTENT WITH INITIATING ADLS, SAMMY FEEDING. HE ALMOST ALWAYS INITITATES THE NEED TO URINATE BUT FREQ INCONTINENT OF BOWEL. RECOMMEND IP REHAB PRIOR TO DC HOME WITH SON, PT IS MUCH MORE CONFUSED THAN PREVIOUSLY.. SON MAY HAVE A DIFFICULT TIME CARING FOR PT AT THIS TIME SIVA MARTINO, Zaid TR/L
[2019-04-16] MEDS ORDERED: LEVOFLOXACIN500 MG PO (15:34)
--- NOTE | 2019-04-16 16:10 | NUR ---
TALKED TO RADHA NAOMIE'S SON REGARDING DISCHARGE ORDERS. STATES HE WILL GATHER A CHANGE OF CLOTHES AND BE UP SHORTLY FOR TRANSPORT.
[2019-04-16 16:19] VITALS: BP 131/96
--- NOTE | 2019-04-16 17:03 | MORECARE ---
CASE MANAGEMENT DISCHARGE SUMMARY PATIENT: JUNIOR PFEIFFER UNIT: [id number] ADM DATE: 04/11/19 AGE: 83 : 34 SEX: M ROOM/BED: D.2139 AUTHOR: ZAN,DOC PHYSICIAN: REFERRING PHYSICIAN: WAQAR OMER MD DATE OF SERVICE: 04/16/19 Discharge Plan Patient Name: JUNIOR PFEIFFER Facility: [facility]:[place] : 1935 Planned Disposition: Home with Home Health Anticipated Discharge Date: 04/16/19 Discharge Date: Expected LOS: 5 Initial Reviewer: [id number] Initial Review Date: 04/13/2019 Generated: 04/16/19 6:02 pm Comments DCP- Discharge Planning Updated by [id number]: Eric Nino on 04/16/19 3:[address] Patient Name: JUNIOR PFEIFFER Encounter No: [id number] : 1935 Primary Insurance: [employer] CHOICE PPO MCR ADVANT Anticipated DC Date: 04-16-2019 Planned Disposition: Home with Home Health External Planned Provider: [facility] DCP follow-up note: CM RECEIVED DISCHARGE, RN YASMANY COTA NOTIFIED [facility] AT [phone]. CM FAXED DISCHARGE INFORMATION TO [facility] AT [phone]. [facility] WILL ARRANGE HOME DELIVERY OF ROLLATOR WALKER WHEN IT COMES IN AROUND FRIDAY OF NEXT WEEK, 04-20-18. Space Operations: Eric Nino DCP- Discharge Planning Updated by [id number]: Eric Nino on 04/15/19 2:[address] Patient Name: JUNIOR PFEIFFER Encounter No: [id number] : 1935 Primary Insurance: [employer] CHOICE PPO MCR ADVANT Anticipated DC Date: 04-15-2019 Planned Disposition: Home with Home Health External Planned Provider: [facility] Discharge Planning Comments: CM RECEIVED FAX FROM [facility] INDICATING THAT THE ROLLATOR WALKER IS NOT IN STOCK. CM CALLED PT'S SON RADHA AND OFFERED TO USE ANOTHER MEDICAL EQUIPMENT COMPANY, BILL DECLINED AND STATES THAT THEY CAN MAKE IT AT HOME WITH PT UNTIL THE WALKER ARRIVES AND HE WANTS TO LEAVE THE ORDER WITH [facility]. CM CALLED AND SPOKE TO LISA OF [facility], , ROLLATOR ON ORDER AND THEY WILL CONTACT PT'S SON WHEN IT COMES IN FOR DELIVERY. FOR DISCHARGE, NOTIFY [facility] AT [phone], FAX DISCHARGE INFORMATION TO [facility] AT [phone]. [facility] WILL ARRANGE HOME DELIVERY OF ROLLATOR WALKER WHEN IT COMES IN AROUND FRIDAY OF NEXT WEEK, 04-20-18. Space Operations: Eric Nino DCP- Discharge Planning Updated by [id number]: Eric Nino on 04/13/19 3:[address] Patient Name: JUNIOR PFEIFFER Admission Status: Elective Accout number: [id number] Admission Date: 04-11-2019 : 1935 Admission Diagnosis: Attending: WAQAR OMER Current LOS: 2 Anticipated DC Date: 04-15-2019 Planned Disposition: Home with Home Health Primary Insurance: [employer] PPO [facility] ADVANT PLANNED EXTERNAL PROVIDER: [facility] Discharge Planning Comments: CM MET WITH PT AND SON IN ROOM TO DISCUSS DISCHARGE PLANNING AND NEEDS. JUNIOR PFEIFFER provided verbal consent to discuss current and ongoing needs with/in the presence of: SON RADHA. PT REPORTS LIVING AT HOME INDEPENDENTLY WITH SON. PT'S SON REPORTS TAKING CARE OF PT'S MEDICATIONS PT HAS DEMENTIA. PT HAS NEBULIZER AND OXYGEN FROM [facility] IN [place]. PT HAS NO OUTSIDE SERVICES ASSISTING IN THE HOME. CM DISCUSSED AVAILABILITY OF HOME HEALTH, REHAB SERVICES AND MEDICAL EQUIPMENT. CM DISCUSSED THAT PT WAS TOO HIGH FUNCTIONING FOR INPATIENT REHAB, DISCUSSED OPTIONS. PT'S SON DOES NOT WANT PT IN [facility] REHAB AND ASKED FOR HOME HEALTH WITH PHYSICAL THERAPY. PT'S SON WILL PICK PT UP FOR DISCHARGE HOME. IMPORTANT MESSAGE FROM MEDICARE PROVIDED AND EXPLAINED. CHOICE FOR NO HOME HEALTH PROVIDER SIGNED. CHOICE FOR [facility] SIGNED. CM CALLED [facility], , SPOKE TO JEVON WHO TOOK REFERRAL INFORMATION AND WILL ACCEPT PT FOR HOME HEALTH CARE. CM FAXED REFERRAL INFORMATION TO [facility] AT [phone]. CM CALLED [facility], , SPOKE TO RADHA WHO REPORTS THEY WILL NOT HAVE ANY ROLLATOR WALKERS UNTIL FRIDAY OF NEXT WEEK BUT CAN PROCESS ORDER FOR HOSPITAL OR HOME DELIVERY. CM FAXED REFERRAL FOR ROLLATOR WALKER TO [facility] AT [phone]. FOR DISCHARGE, NOTIFY [facility] AT [phone], FAX DISCHARGE INFORMATION TO [facility] AT [phone]. [facility] WILL ARRANGE HOME DELIVERY OF ROLLATOR WALKER WHEN IT COMES IN AROUND 04-20-18. Space Operations: Eric Nino DCPIA - Discharge Planning Initial Assessment Updated by SOHA: Eric Nino on 04/13/19 4:38 pm * Is the patient Alert and Oriented? Yes * How many steps to enter\exit or inside your home? NONE * PCP DR. GRANT * Pharmacy [facility] * Preadmission Environment Home with Family * ADLs Partial Dependent * Partial ADLs (Assistance needed) Medication Management * Equipment Nebulizer Oxygen * Other Equipment HOME OXYGEN [facility] - MEDICAL EQUIPMENT PROVIDER * List name and contact numbers for known caregivers / representatives who currently or will assist patient after discharge: RAFA MA, * Verbal permission to speak to the caregivers and representatives has been obtained from the patient. Yes * Community resources currently utilized None * Please name any agencies selected above. NONE * Additional services required to return to the preadmission environment? Yes * Can the patient safely return to the preadmission environment? Yes * Has this patient been hospitalized within the prior 30 days at any hospital? No Coverage Notice Reviewer: SOHA Nino Notice Issued Date-Time: 04/13/2019 10:00 Notice Type: IM Discharge Notice Notice Delivered To: Family Member Relationship to Patient: Rafa Rn Chronic Name: RADHA PFEIFFER Delivery Method: HAND - Hand Delivered Azalia Days: Prior Verbal Notification: Recipient Understood Notice: Yes Recipient Signature: Yes Med Rec Note Co-signed by Attending: Coverage Notice Comment: Reviewer: SOHA Nino Notice Issued Date-Time: 04/13/2019 10:00 Notice Type: Patient Choice Letter Notice Delivered To: Family Member Relationship to Patient: Son Rn Chronic Name: RADHA PFEIFFER Delivery Method: HAND - Hand Delivered Azalia Days: Prior Verbal Notification: Recipient Understood Notice: Yes Recipient Signature: Yes Med Rec Note Co-signed by Attending: Coverage Notice Comment: [facility] NO C PROVIDER PREFERENCE. Last DP export: 04/15/19 2:13 pm Patient Name: JUNIOR PFEIFFER Page [id number] at 1703 All edits/amendments must be made on the electronic document DICTATION DATE: 04/16/191701 POOL HALL INSPECTOR: JASS 04/16/191701 RPT#: [id number] DC DATE: STATUS: ADM IN [facility] [address] [place] [address] END OF REPORT
--- NOTE | 2019-04-16 18:57 | NUR ---
PT DISCHARGED HOME WITH SON. IV REMOVED. TELEMETRY ALREADY REMOVED. INSTRUCTIONS REVIEWED WITH PT AND SON. ASSIST TO DRESS AND LEFT VIA WHEELCHAIR.
--- NOTE | 2019-04-19 11:13 | EC ---
PATIENT:JUNIOR PFEIFFER DATE OF SERVICE: 04/11/19 SEX: M MEDICAL RECORD: [id number] DATE OF : [birth year] LOCATION:D.M2 D.213 AGE OF PATIENT: 83 ADMISSION DATE: 04/11/19 REFERRING PHYSICIAN: INTERPRETING PHYSICIAN: MIKI MARTINEZ MD ECHOCARDIOGRAM REPORT ECHO CHARGES 4 ECHO COMPLETE Date: 04/12/19 CLINICAL DIAGNOSIS: CARDIOMYOPATHY ECHOCARDIOGRAPHIC MEASUREMENTS (adult normal given) AC root (d.<3.7cm) 3.2 cm LV Septum d (<1.2 cm> 0.7 cm Valve Excursion 1.5 cm LV Septum (systole) 1.1 cm Left Atria (s.<4.0cm> 3.8 cm LVPW d(<1.2cm) 1.3 cm RV (d.<2.3cm) 3.1 cm LVPW (sytole) 1.4 cm LV diastole(<5.6CM) 5.8 cm MV E-F(>70mm/sec) cm LV systole 4.9 cm LVOT Diameter 1.7 cm MV exc.(>10mm) cm Est.ejection fraction (50-75%) % DOPPLER: LVIT cm/sec A 31 cm/sec E 67 cm/sec LA cm/sec RVSP 30.9 mmHg LVOT 69 cm/sec AOP1/2T m/s Asc. Ao 127 cm/sec RVOT 55 cm/sec RA cm/sec PA 81 cm/sec AV Gradient Peak 6.4 mmHg AV Mean 4.3 mmHg AV Area 1.3 cm MV Gradient Peak 2.3 mmHg MV Mean 1.0 mmHg MV Area cm COMMENTS: Hemstitcher: Erum [facility] Cpr Instructor: 1 Dr. Martinez TAPE# PACS Pericardial Effusion N DATE OF SERVICE: ECHOCARDIOGRAM FINDINGS: 1. Left ventricular chamber size is mildly dilated. Left ventricular systolic function is mildly reduced at 45%. 2. Left atrium is within normal limits. Right atrium and right ventricular chamber sizes are as well mildly dilated. 3. Valvular structures have normal structure and motion. ECHOCARDIOGRAM REPORT [id number] JUNIOR PFEIFFER 4. Doppler interrogation reveals mild aortic insufficiency, cgem-rx-xshaeyne mitral regurgitation, mild tricuspid regurgitation, no other valvular insufficiency or stenosis. Pulmonary systolic pressure estimated at 31 mmHg. 5. No evidence of pericardial effusion or left ventricular thrombus. TRANSINT:[id number] Voice Confirmation ID: [id number] DOCUMENT ID: [id number] MIKI MARTINEZ MD at 1113 CC: [id number] DICTATION DATE: 04/13/19 1012 OYSTER PICKER: 04/13/19 1257 DIS IN 04/16/19 [place] [id number] [place] [id number]
--- NOTE | 2019-04-19 11:13 | CN ---
PATIENT NAME:JUNIOR PFEIFFER MEDICAL RECORD: [id number] : [birth year] LOCATION:[facility] D.2139 ADMIT DATE: 04/11/19 ACCOUNT: [id number] CONSULTING PHYSICIAN: MIKI MCLAUGHLIN MD REFERRING PHYSICIAN: WAQAR OMER MD DATE OF CONSULTATION: 04/11/2019 CARDIOLOGY CONSULTATION DIAGNOSES: 1. Syncope. 2. Generalized weakness. 3. Hyperlipidemia. 4. Smoking history. 5. Chronic obstructive pulmonary disease. 6. Coronary disease. 7. Abnormal ECG. 8. Non-Q-wave myocardial infarction. 9. Atrial fibrillation. 10. Frequent falls. HISTORY OF PRESENT ILLNESS: This is a gentleman who presents to the Emergency Room with syncope, generalized weakness and lethargy. He is found to have an elevated troponin compatible with non-Q-wave myocardial infarction and an EKG with lateral ischemia. His son is present and gives a history that he does have a cardiac history and is followed by Dr. Fraser. He underwent cardiac catheterization a number of years ago and was told his vessels are so heavily calcified that no stenting could be undertaken. He has had a chronically elevated troponin and he has been told in the past that the EKG is abnormal. The atrial fibrillation is as well not new. He is rate controlled with digoxin. He is not on any anticoagulation secondary to the frequent falls. This is as well not a new problem. PHYSICAL EXAMINATION: CONSTITUTIONAL/GENERAL APPEARANCE: Well nourished, well developed, appears stated age. EYES: Lids and conjunctivae noninjected. No discharge. No pallor. ENT: Lips within normal limit. No cyanosis. No pallor. NECK: Carotid arteries, bilateral normal upstroke. No bruits. No thrills. No jugular venous pressure or distention. CERVICAL LYMPH NODES: Nontender. Nonenlarged. THYROID: Not enlarged. No nodules. CARDIOVASCULAR: Irregularly irregular, in atrial fibrillation. RESPIRATORY: Respiratory effort, unlabored. Normal curvature. No thoracic deformity. No chest wall tenderness. Percussion, resonant. Auscultation, clear. No wheezes, no rales, no rhonchi. ABDOMEN: Soft, nondistended, nontender. No abdominal pain, no vomiting and normal appetite. MUSCULOSKELETAL: No joint tenderness, normal gait, normal tone. SKIN: Warm and dry. OVERALL IMPRESSION: Atrial fibrillation, non-Q-wave myocardial infarction, chronic cardiac ischemia with abnormal ECG. None of this is new. At this time, we will get an echocardiogram to document his ejection fraction at this institution, but no other cardiac workup or treatment should be necessary. CONSULT REPORT [id number] JUNIOR PFEIFFER TRANSINT:[id number] Voice Confirmation ID: [id number] DOCUMENT ID: [id number] MIKI MCLAUGHLIN MD at 1113 CC: [id number] DICTATION DATE: 04/11/19 1433 SENIOR CONSULTING MANAGER: 04/11/19 1708 DIS IN 04/16/19 [place] [address] [place] [address]
== END 2019-04-16 18:58 | disposition home health service (06) | DRG 314 ==
LOC: D.ER 11:54 → D.M2 15:08
PROVIDERS: Emergency Medicine; ADMIT Internal Medicine Nephrology; ATTEND Internal Medicine Nephrology
DX: I95.9 Hypotension, unspecified (principal); J96.21 Acute and chronic respiratory failure with hypoxia; G92 Toxic encephalopathy; I48.20 Chronic atrial fibrillation, unspecified; R64 Cachexia; Z68.1 Body mass index [BMI] 19.9 or less, adult; N17.9 Acute kidney failure, unspecified; E87.1 Hypo-osmolality and hyponatremia; T46.0X5A Adverse effect of cardiac-stimulant glycosides and drugs of similar action, initial encounter; E78.5 Hyperlipidemia, unspecified; W19.XXXA Unspecified fall, initial encounter; E86.0 Dehydration; K21.9 Gastro-esophageal reflux disease without esophagitis; J44.9 Chronic obstructive pulmonary disease, unspecified

== ENCOUNTER 2019-06-29 17:53 | Inpatient (IN) | payer MEDICARE ==
[~2019-06-29] VITALS: Ht 170.2 cm; Wt 61.1 kg
[~2019-06-29 17:53] MED LIST changes: +ALDACTONE50 MG PO; +LEVOFLOXACIN500 MG PO
--- NOTE | 2019-06-29 18:30 | NUR ---
NASAL SWABS X2, COVID 19 SWAB AND THROAT SWABS OBTAINED, LABELED AT BS AND SENT TO LAB
[2019-06-29 18:43] LABS: BASOPHILS 0.2 % (0-2); EOSINOPHILS 1.2 % (0-7); HEMATOCRIT 51.6 % (42.0-54.0); IMMATURE GRANULOCYTES 0.3 % (0-5); LYMPHOCYTES 10.3 % (15-50); MCH 27.4 pg (26.0-34.0); MCV 88.5 fL (80.0-100.0); MONOCYTES 6.2 % (2-11); NEUTROPHILS 81.8 % (40-80); PLATELET COUNT 202 10x3/uL (130-400); RBC 5.83 10x6/uL (4.20-6.10); RDW 16.9 % (11.5-14.5); WBC 11.8 10x3/uL (4.8-10.8)
[2019-06-29 18:47] LABS: APTT 35.4 SECONDS (22.8-39.4); INR 1.18 (0.85-1.17); PROTIME 14.9 SECONDS (11.6-15.0)
[2019-06-29 18:49] LABS: CALC OSMOLALITY 282 mosm/kg (275-300); CALCIUM 8.2 mg/dL (8.5-10.1); CARBON DIOXIDE 26.2 mmol/L (21.0-32.0); CHLORIDE - SERUM 103 mmol/L (98-107); CREATININE - SERUM 1.2 mg/dL (0.6-1.3); POTASSIUM - SERUM 3.4 mmol/L (3.5-5.1); SODIUM 139 mmol/L (136-145); UREA NITROGEN 21 mg/dL (7-18); eGFR NON AFRICAN AMERICAN 61 mL/min (90-120)
[2019-06-29 18:50] LABS: GLUCOSE 140 mg/dL (74-106)
[2019-06-29 18:55] LABS: C-REACTIVE PROTEIN 1.3 mg/dL (0.0-0.9)
[2019-06-29 19:05] LABS: ALBUMIN 3.4 g/dL (3.4-5.0); ALKALINE PHOSPHATASE 131 U/L (30-120); ALT (SGPT) 23 U/L (10-68); BILIRUBIN - TOTAL 1.27 mg/dL (0.2-1.3); CKMB 0.7 U/L (0.0-3.6); CREATINE KINASE 33 UL (21-232); PRO BNP 16430 pg/mL (0-450); PROTEIN - SERUM 7.5 g/dL (6.4-8.2)
[2019-06-29 19:06] LABS: TROPONIN-I < 0.017 ng/mL (0.000-0.060)
--- NOTE | 2019-06-29 19:34 | NUR ---
PT LYING IN SUPINE POSITION. ICE WATER PROVIDED PER REQUEST AND EDP APPROVAL. NO SIGNS DISTRESS NOTED AT THIS TIME. WILL CONTINUE TO MONITOR.
--- NOTE | 2019-06-29 20:30 | NUR ---
PT ROAMING HALLWAY AT THIS TIME. PT D/C'D OWN IV IN HIS ROOM. IV INFUSION ROCEPHIN COMPLETE. PT ESCORTED BACK TO ROOM.
--- NOTE | 2019-06-29 21:31 | NUR ---
PT FULLY DRESSED, CONFUSED, ROAMING AROUND ROOM AND UNABLE TO REDIRECT. PT IS PUI AND NOT ALLOWED TO LEAVE ROOM. PT PLACED GENTLY ON BED, CHANGED BACK INTO GOWN, PLACED BACK ON OXYGEN, AND WHILE EXPLAINING EVERYTHING, HALDOL ADMINISTERED AND SOFT BILATERAL WRIST RESTRAINTS APPLIED. FLOW SHEET BEGAN.
[2019-06-29 22:57] VITALS: BP 139/82
--- NOTE | 2019-06-29 23:28 | NUR ---
BILATERAL WRIST RESTRAINTS REMOVED AND REPLACED AT THIS TIME. PT WAS ACTIVELY TRYING TO D/C HIS IV. INFUSION OF AZITHROMYCIN CONTINUES. DRESSING DRY, INTACT.
[2019-06-29 23:32] VITALS: BP 117/88
[2019-06-29 23:45] VITALS: BP 127/92
[2019-06-30] VITALS (25 sets, daily range): BP systolic 98–145; BP diastolic 58–103; Ht 170.2 cm; Wt 61.1 kg
--- NOTE | 2019-06-30 | NUR ---
PT ARRIVED TO ICU ACCOMPANIED BY ER STAFF. REPORT RECEIVED. PT RESTRAINED WITH SOFT WRIST RESTRAINTS BILAT. PT RESTING IN BED AT THIS TIME. ASSESSMENT COMPLETED, SEE FLOWSHEET. PIV IN LEFT FOREARM INFUSING, SEE IV FLOWSHEET. WILL CONTINUE TO MONITOR.
--- NOTE | 2019-06-30 01:00 | NUR ---
PT RESTING COMFORTABLY IN BED, CONFUSED AT THIS TIME TO TIME, PLACE, SITUATION. REORIENTED NEEDED. WILL CONTINUE TO MONITOR.
--- NOTE | 2019-06-30 03:00 | NUR ---
REASSESSMENT COMPLETED, PT ATTEMPTED TO DRINK SIPS OF WATER, DID NOT TOLERATE WELL. WILL CONTINUE TO MONITOR.
[2019-06-30 04:38] LABS: BASOPHILS 0.1 % (0-2); EOSINOPHILS 0.1 % (0-7); HEMATOCRIT 45.6 % (42.0-54.0); HEMOGLOBIN 14.3 g/dL (13.5-17.5); IMMATURE GRANULOCYTES 0.2 % (0-5); LYMPHOCYTES 12.8 % (15-50); MCH 27.7 pg (26.0-34.0); MCHC 31.4 g/dL (31.0-37.0); MCV 88.4 fL (80.0-100.0); MEAN PLATELET VOLUME 11.6 fL (7.4-10.4); MONOCYTES 8.1 % (2-11); NEUTROPHILS 78.7 % (40-80); RBC 5.16 10x6/uL (4.20-6.10); RDW 16.7 % (11.5-14.5); WBC 9.2 10x3/uL (4.8-10.8)
[2019-06-30 04:43] LABS: PLATELET COUNT 145 10x3/uL (130-400)
--- NOTE | 2019-06-30 05:00 | NUR ---
PT RESTING IN BED, NO ACUTE DISTRESS NOTED. DISORIENTED TO TIME, PLACE, SITUATION.
[2019-06-30 05:25] LABS: ALBUMIN 2.9 g/dL (3.4-5.0); BILIRUBIN - TOTAL 0.95 mg/dL (0.2-1.3); CALCIUM 8.1 mg/dL (8.5-10.1); CREATININE - SERUM 1.2 mg/dL (0.6-1.3); DIGOXIN 1.8 ng/mL (0.90-2.00); MAGNESIUM - SERUM 1.9 mg/dL (1.8-2.4); PHOSPHOROUS 3.8 mg/dL (2.5-4.9)
[2019-06-30 05:27] LABS: ANION GAP 14.4 mmol/L (8-16); POTASSIUM - SERUM 4.4 mmol/L (3.5-5.1)
--- NOTE | 2019-06-30 07:15 | NUR ---
PT RESTING IN BED, VSS. PT LETHARGIC BUT AWAKENS TO VERBAL STIMULI. NO SIGNS OF DISTRESS NOTED. WILL CONT TO FOLLOW POC
--- NOTE | 2019-06-30 08:30 | NUR ---
PT DIL IS HORACIO PFEIFFER
--- NOTE | 2019-06-30 09:00 | NUR ---
PT RESTING IN BED, VSS AND WNL. PT LETHARGIC BUT WAKENS TO VERBAL STIMULI. NO SIGNS OF DISTRESS NOTED. FAMILY CALLED AND MED REC UPDATED. WILL CONT TO FOLLOW POC
--- NOTE | 2019-06-30 10:59 | NUR ---
PT MORE AWAKE, ANSWERING QUESTIONS BUT STILL ONLY ORIENTED TO SELF. VSS. PT DENIES ANY PAIN AT THIS TIME, BED ALARM ON. WILL CONT TO FOLLOW POC
--- NOTE | 2019-06-30 13:00 | NUR ---
PT RESTING IN BED, VSS AND WNL. NO SIGNS OF DISTRESS NOTED. BED ALARM ON. WILL CONT TO FOLLOW POC
--- NOTE | 2019-06-30 17:27 | NUR ---
PT RESTING IN BED, VSS AND WNL. BED ALARM ON. NO SIGNS OF DISTRESS NOTED. WILL CONT TO FOLLOW POC
--- NOTE | 2019-06-30 19:00 | NUR ---
REPORT RECEIVED. PT AWAKE IN BED, CONFUSED AND DISORIENTED TO TIME, PLACE, SITUATION, ATTEMPTED TO REORIENT. ASSESSMENT COMPLETED, SEE FLOWSHEET. PIV IN LEFT FOREARM, SEE IV FLOWSHEET. NO ACUTE DISTRESS NOTED AT THIS TIME, WILL CONTINUE TO MONITOR.
--- NOTE | 2019-06-30 21:00 | NUR ---
PT RESTING IN BED, CONFUSED/DISORIENTED TO PLACE, TIME, SITUATION. ATTEMPTED TO REORIENT.
--- NOTE | 2019-06-30 23:00 | NUR ---
REASSESSMENT COMPLETE, PT AWAKE IN BED, DISORIENTED TO TIME, PLACE, SITUATION.
[2019-07-01] VITALS (13 sets, daily range): BP systolic 103–135; BP diastolic 68–108
--- NOTE | 2019-07-01 01:00 | NUR ---
PT RESTLESS, ATTEMPTING TO GET OUT OF BED TO "GET READY BEFORE THE DEPUTY'S GET HERE." REORIENTED NEEDED. RAFI MANN APN PAGED. WILL CONTINUE TO MONITOR.
--- NOTE | 2019-07-01 03:00 | NUR ---
REASSESSMENT COMPLETED, SEE FLOWSHEET. PT RESTING IN BED AT THIS TIME.
[2019-07-01 04:59] LABS: BASOPHILS 0.3 % (0-2); EOSINOPHILS 0.1 % (0-7); HEMATOCRIT 46.5 % (42.0-54.0); HEMOGLOBIN 14.6 g/dL (13.5-17.5); IMMATURE GRANULOCYTES 0.4 % (0-5); LYMPHOCYTES 10.1 % (15-50); MCH 27.5 pg (26.0-34.0); MCHC 31.4 g/dL (31.0-37.0); MCV 87.6 fL (80.0-100.0); MEAN PLATELET VOLUME 11.5 fL (7.4-10.4); NEUTROPHILS 80.1 % (40-80); RBC 5.31 10x6/uL (4.20-6.10); RDW 17.1 % (11.5-14.5); WBC 7.8 10x3/uL (4.8-10.8)
--- NOTE | 2019-07-01 05:00 | NUR ---
PT RESTLESS, ATTEMPTING TO GET OUT OF BED. CONFUSED AND DISORIENTED TO TIME, PLACE, AND SITUATION, ATTEMPTED TO REORIENT.
[2019-07-01 05:07] LABS: PLATELET COUNT 176 10x3/uL (130-400)
[2019-07-01 05:19] LABS: ANION GAP 13.1 mmol/L (8-16); BILIRUBIN - TOTAL 1.27 mg/dL (0.2-1.3); CALCIUM 8.4 mg/dL (8.5-10.1); CARBON DIOXIDE 26.3 mmol/L (21.0-32.0); CREATININE - SERUM 1.3 mg/dL (0.6-1.3); MAGNESIUM - SERUM 2.1 mg/dL (1.8-2.4); PHOSPHOROUS 3.6 mg/dL (2.5-4.9); PROTEIN - SERUM 6.8 g/dL (6.4-8.2)
[2019-07-01 05:22] LABS: POTASSIUM - SERUM 3.4 mmol/L (3.5-5.1)
--- NOTE | 2019-07-01 07:39 | NUR ---
PT RESTING IN BED, VSS AND WNL. NO SIGNS OF DISTRESS NOTED. BED ALARM ON. WILL CONT TO FOLLOW POC
--- NOTE | 2019-07-01 10:30 | NUR ---
DR TAYLOR AT BEDSIDE. PT OKAY TO TRANSFER TO FLOOR.
[2019-07-01 11:16] LABS: BILIRUBIN NEGATIVE (NEGATIVE); GLUCOSE NEGATIVE (NEGATIVE); KETONE NEGATIVE (NEGATIVE); NITRITE NEGATIVE (NEGATIVE); SPECIFIC GRAVITY 1.015 (1.005-1.020); UROBILINOGEN 4 mg/dL (NORMAL)
[2019-07-01 11:17] LABS: BACTERIA FEW /hpf (NEGATIVE); EPITHELIAL CELLS 0-5 /hpf (0-5); HYALINE CAST RARE /lpf (NONE SEEN); RED CELLS - URINE RARE /hpf (0-5); WHITE CELLS - URINE 0-5 /hpf (NEGATIVE)
--- NOTE | 2019-07-01 14:00 | NUR ---
DR SAMAYOA AT BEDSIDE. UPDATE GIVEN. NO NEW ORDERS AT THIS TIME.
--- NOTE | 2019-07-01 14:45 | NUR ---
DR YAO SMITH. ORDER RECEIVED TO TRANSFER PT OUT TO [facility].
--- NOTE | 2019-07-01 15:30 | NUR ---
JOSEY CLIFFORD AT BEDSIDE PERFORMING SWALLOW STUDY.
--- NOTE | 2019-07-01 16:08 | MORECARE ---
CASE MANAGEMENT DISCHARGE SUMMARY PATIENT: JUNIOR PFEIFFER UNIT: [id number] ADM DATE: 06/29/19 AGE: 83 : 34 SEX: M ROOM/BED: D.2314 AUTHOR: YAS ZULUAGA PHYSICIAN: REFERRING PHYSICIAN: DAVID SAMAYOA MD DATE OF SERVICE: 07/01/19 Discharge Plan Patient Name: JUNIOR PFEIFFER [facility] [facility] 1935 Planned Disposition: Anticipated Discharge Date: Discharge Date: Expected LOS: Initial Reviewer: [email or web address] Initial Review Date: 06/29/2019 Generated: 07/01/19 5:07 pm DCPIA - Discharge Planning Initial Assessment Updated by [email or web address]: Cassie Barlow on 07/01/19 4:06 pm * Is the patient Alert and Oriented? No * How many steps to enter\exit or inside your home? Patient Name: JUNIOR PFEIFFER Page [id number] at 1608 All edits/amendments must be made on the electronic document DICTATION DATE: 07/01/191606 FUR DRESSING SUPERVISOR: JASS 07/01/19 160 RPT#: [id number] DC DATE: STATUS: ADM IN [facility] [address] [place] [address] END OF REPORT
--- NOTE | 2019-07-01 16:23 | MORECARE ---
CASE MANAGEMENT DISCHARGE SUMMARY PATIENT: JUNIOR PFEIFFER UNIT: [id number] ADM DATE: 06/29/19 AGE: 83 : 34 SEX: M ROOM/BED: D.2314 AUTHOR: YAS ZULUAGA PHYSICIAN: REFERRING PHYSICIAN: DAVID SAMAYOA MD DATE OF SERVICE: 07/01/19 Discharge Plan Patient Name: JUNIOR PFEIFFER Facility: [facility]:[place] : 1935 Planned Disposition: Anticipated Discharge Date: Discharge Date: Expected LOS: Initial Reviewer: [email or web address] Initial Review Date: 06/29/2019 Generated: 07/01/19 5:22 pm Comments DCP- Discharge Planning Updated by [email or web address]: Cassie Barlow on 07/01/19 3:[address] Patient Name: JUNIOR PFEIFFER Admission Status: ER Accout number: [id number] Admission Date: 06-29-2019 : 1935 Admission Diagnosis: Attending: DAVID SAMAYOA Current LOS: 2 Anticipated DC Date: Planned Disposition: Primary Insurance: [employer] Discharge Planning Comments: Patient is confused and not allowed visitors d/t isolation precautions. CM attempted to call son listed as contact but received no answer CM left a message to call back for discharge planning assessment. CM will continue to follow and assist as needed with discharge planning needs. Palliative Care Coordinator: Cassie Barlow DCPIA - Discharge Planning Initial Assessment Updated by [id number]: Cassie Barlow on 07/01/19 4:06 pm * Is the patient Alert and Oriented? No * How many steps to enter\exit or inside your home? Last DP export: 07/01/19 3:08 p Patient Name: JUNIOR PFEIFFER Page [id number] at 1623 All edits/amendments must be made on the electronic document DICTATION DATE: 07/01/191621 MANAGER SOCIAL MEDIA: JASS 07/01/191621 RPT#: [id number] DC DATE: STATUS: ADM IN [facility] [address] [place] [address] END OF REPORT
--- NOTE | 2019-07-01 17:05 | MORECARE ---
CASE MANAGEMENT DISCHARGE SUMMARY PATIENT: JUNIOR PFEIFFER UNIT: [id number] ADM DATE: 06/29/19 AGE: 83 : 34 SEX: M ROOM/BED: D.2314 AUTHOR: ZAN,DOC PHYSICIAN: REFERRING PHYSICIAN: DAVID SAMAYOA MD DATE OF SERVICE: 07/01/19 Discharge Plan Patient Name: JUNIOR PFEIFFER Facility: [facility]:[place] : 1935 Planned Disposition: Anticipated Discharge Date: Discharge Date: Expected LOS: Initial Reviewer: [email or web address] Initial Review Date: 06/29/2019 Generated: 07/01/19 6:05 pm Comments DCP- Discharge Planning Updated by [email or web address]: Cassie Barlow on 07/01/19 3:[address] Patient Name: JUNIOR PFEIFFER Admission Status: ER Accout number: [id number] Admission Date: 06-29-2019 : 1935 Admission Diagnosis: Attending: DAVID SAMAYOA Current LOS: 2 Anticipated DC Date: Planned Disposition: Primary Insurance: [employer] CHOICE PPO [facility] Discharge Planning Comments: Patient is confused and not allowed visitors d/t isolation precautions. CM attempted to call son listed as contact but received no answer CM left a message to call back for discharge planning assessment. CM will continue to follow and assist as needed with discharge planning needs. Research Advisor: Cassie Barlow DCPIA - Discharge Planning Initial Assessment Updated by [email or web address]: Cassie Barlow on 07/01/19 5:01 pm * Is the patient Alert and Oriented? No * How many steps to enter\exit or inside your home? 2-3 * PCP JUANITA * Pharmacy [facility] - MAIL ORDER * Preadmission Environment Home with Family * ADLs Independent * Other Equipment HOME / PORTABLE * List name and contact numbers for known caregivers / representatives who currently or will assist patient after discharge: RADHA PFEIFFER - SON - [phone] * Verbal permission to speak to the caregivers and representatives has been obtained from the patient. Yes * Community resources currently utilized Home Health * Please name any agencies selected above. [facility] * Additional services required to return to the preadmission environment? No * Can the patient safely return to the preadmission environment? Yes * Has this patient been hospitalized within the prior 30 days at any hospital? No Last DP export: 07/01/19 3:23 p Patient Name: JUNIOR PFEIFFER Page 00301 at 1705 All edits/amendments must be made on the electronic document DICTATION DATE: 07/01/191704 FREIGHT CONDUCTOR: JASS 07/01/191704 RPT#: [id number] DC DATE: STATUS: ADM IN [facility] [address] [place] [address] END OF REPORT
--- NOTE | 2019-07-01 17:15 | MORECARE ---
CASE MANAGEMENT DISCHARGE SUMMARY PATIENT: JUNIOR PFEIFFER UNIT: [id number] ADM DATE: 06/29/19 AGE: 83 : 34 SEX: M ROOM/BED: D.2314 AUTHOR: ZAN,DOC PHYSICIAN: REFERRING PHYSICIAN: DAVID SAMAYOA MD DATE OF SERVICE: 07/01/19 Discharge Plan Patient Name: JUNIOR PFEIFFER Facility: [facility]:[place] : 1935 Planned Disposition: Anticipated Discharge Date: Discharge Date: Expected LOS: Initial Reviewer: [email or web address] Initial Review Date: 06/29/2019 Generated: 07/01/19 6:14 pm Comments DCP- Discharge Planning Updated by [id number]: Cassie Barlow on 07/01/19 4:[address] Patient Name: JUNIOR PFEIFFER Admission Status: ER Accout number: [id number] Admission Date: 06-29-2019 : 1935 Admission Diagnosis: Attending: DAVID SAMAYOA Current LOS: 2 Anticipated DC Date: Planned Disposition: Primary Insurance: [employer] CHOICE PPO [facility] ADVANT Discharge Planning Comments: CM spoke with son via phone after explaining CM role and obtaining verbal consent. Patient lives at home with his son Radha where he is independent with his care and plans to return there upon discharge. Radha feels this would be a safe discharge. CM discussed availability / needs of home health and medical equipment. Patient has home/ portable 02 with [employer]. Patient also has [facility] and they plan to resume care. BRIE signed Patient's son denies any discharge needs at this time. Family will drive him home upon discharge. CM will continue to follow and assist as needed with discharge planning / needs. Communications Advisor: Cassie Barlow DCP- Discharge Planning Updated by [id number]: Cassie Barlow on 07/01/19 3:[address] Patient Name: JUNIOR PFEIFFER Admission Status: ER Accout number: [id number] Admission Date: 06-29-2019 : 1935 Admission Diagnosis: Attending: DAVID SAMAYOA Current LOS: 2 Anticipated DC Date: Planned Disposition: Primary Insurance: [employer] CHOICE PPO [facility] ADVANT Discharge Planning Comments: Patient is confused and not allowed visitors d/t isolation precautions. CM attempted to call son listed as contact but received no answer CM left a message to call back for discharge planning assessment. CM will continue to follow and assist as needed with discharge planning needs. Communications Advisor: Cassie Barlow DCPIA - Discharge Planning Initial Assessment Updated by [id number]: Cassie Barlow on 07/01/19 5:01 pm * Is the patient Alert and Oriented? No * How many steps to enter\exit or inside your home? 2-3 * PCP JUANITA * Pharmacy [facility] - MAIL ORDER * Preadmission Environment Home with Family * ADLs Independent * Other Equipment HOME / PORTABLE * List name and contact numbers for known caregivers / representatives who currently or will assist patient after discharge: RADHA PFEIFFER - SON - [phone] * Verbal permission to speak to the caregivers and representatives has been obtained from the patient. Yes * Community resources currently utilized Home Health * Please name any agencies selected above. [facility] * Additional services required to return to the preadmission environment? No * Can the patient safely return to the preadmission environment? Yes * Has this patient been hospitalized within the prior 30 days at any hospital? No Last DP export: 07/01/19 4:05 p Patient Name: JUNIOR PFEIFFER Page 52853 at 1715 All edits/amendments must be made on the electronic document DICTATION DATE: 07/01/191713 LEADERSHIP RECRUITER: JASS 07/01/191713 RPT#: [id number] DC DATE: STATUS: ADM IN [facility] [address] [place] [address] END OF REPORT
--- NOTE | 2019-07-01 19:20 | NUR ---
PT ALERT, CONFUSED, OOB IN CHAIR, INCONTINENT OF BM, CLEANED PER STAFF, PLACED GOWN ON PT AND BED CHANGED, ASSISTED TO BED, VITALS STABLE, WILL CONT TO MONITOR
[2019-07-02] VITALS (11 sets, daily range): BP systolic 100–137; BP diastolic 72–108
[2019-07-02 03:15] LABS: BASOPHILS 0.3 % (0-2); EOSINOPHILS 0.5 % (0-7); HEMATOCRIT 45.4 % (42.0-54.0); HEMOGLOBIN 14.5 g/dL (13.5-17.5); IMMATURE GRANULOCYTES 0.2 % (0-5); LYMPHOCYTES 14.7 % (15-50); MCH 27.8 pg (26.0-34.0); MCHC 31.9 g/dL (31.0-37.0); MEAN PLATELET VOLUME 10.9 fL (7.4-10.4); MONOCYTES 12.7 % (2-11); NEUTROPHILS 71.6 % (40-80); PLATELET COUNT 165 10x3/uL (130-400); RBC 5.22 10x6/uL (4.20-6.10); WBC 6.5 10x3/uL (4.8-10.8)
[2019-07-02 03:29] LABS: ALBUMIN 2.9 g/dL (3.4-5.0); ANION GAP 13.9 mmol/L (8-16); BILIRUBIN - TOTAL 1.05 mg/dL (0.2-1.3); CALCIUM 8.9 mg/dL (8.5-10.1); CARBON DIOXIDE 26.2 mmol/L (21.0-32.0); CREATININE - SERUM 1.2 mg/dL (0.6-1.3); MAGNESIUM - SERUM 2.4 mg/dL (1.8-2.4); PHOSPHOROUS 3.6 mg/dL (2.5-4.9); POTASSIUM - SERUM 4.1 mmol/L (3.5-5.1); PROTEIN - SERUM 6.7 g/dL (6.4-8.2)
--- NOTE | 2019-07-02 06:04 | NUR ---
PT RESTING QUIETLY WITH NO CHANGES FROM INITIAL ASSESSMENT, VITALS STABLE
--- NOTE | 2019-07-02 06:09 | NUR ---
PT AROUSES EASILY WITH NO C/O, NO CHANGES NOTED FROM INITIAL ASSESSMENT, VITALS STABLE
--- NOTE | 2019-07-02 07:00 | NUR ---
RECEIVED BEDSIDE REPORT AND ASSUMED CARE OF PATIENT. PATIENT RESTING QUEITLY, AROUSES TO VOICE, CONFUSED TO LOCATION, SITUATION AND TIME. SOMEWHAT COMBATIVE AT FIRST, KICKING AND PINCHING. REORIENTED AND POSITIONED IN BED. REFUSES TO WEAR OR KEEP ON SPO2 SENSOR OR NC FOR 02. IV 20 GA TO LEFT FA NSL. HEAD TO TOE ASSESSMENT COMPLETED. BBS - EXPIRATORY WHEEZES NOTED AND DIMINISHED IN THE BASES. SPO2 - 93% ON RA. CM - NSR WITH PVCS RATE 88.
--- NOTE | 2019-07-02 08:20 | NUR ---
PATEINT INCONTINENT SMALL AMOUNT OF DARK BROWN STOOL, CLEANED, LINENS CHANGED AND REPOSITIONED IN BED. VSS. PATIENT STATES NOT HUNGRY AND REFUSES BREAKFAST TRAY BUT DOES REQUEST A COKE, GIVEN COKE PER REQUEST.
--- NOTE | 2019-07-02 09:50 | NUR ---
PATIENT GIVEN MORNING MEDS PER MAR. VSS. NO NEEDS AT THIS TIME.
--- NOTE | 2019-07-02 10:06 | NUR ---
Nutrition follow-up: Pt remains in isolation with Covid-19 pending Pt awake, alert; nursing reports pt confused and aggressive at times Interview again deferred Diet: mechanical soft with ground meat/gravy; thin liquids PO intake ~25% of meals; pt refused breakfast this morning reporting no hungry. 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 Phenotypic criteria: BMI 20.7 in 83 year old Etiologic criteria: < 50% nutritional intake for > 1 week Chronic inflammatory disease (COPD) Will continuet to provide food choices and encourage increased po intake. Will offer nutritional supplements. Recommend liberalizing diet to regular mechanical soft. ground meat with gravy to encourage increased po intake. RDN following.
--- NOTE | 2019-07-02 11:00 | NUR ---
PATIENT RESTING QUIETLY WITH EYES CLOSED. VSS.
--- NOTE | 2019-07-02 11:20 | NUR ---
BBS - CLEAR AND EQUAL, DIMINISHED IN THE BASES, SPO2 95% ON 2 LPM VIA NC. CM - A-FIB CONTROLLED WITH FREQUENT PVCS RATE 70-80S.
--- NOTE | 2019-07-02 12:29 | NUR ---
ASSISTED PATIENT WITH LUNCH TRAY ATE APPROXIMATELY 20% OF LUNCH. VSS.
--- NOTE | 2019-07-02 13:16 | NUR ---
PATIENT RESTING QUIETLY WITH EYES CLOSED. VSS.
--- NOTE | 2019-07-02 14:26 | NUR ---
PATIENT CONFUSED AND PULLED IV OUT. DIRECT PRESSURE HELD AND PATIENTS GOWN CHANGED. REORIENTED. VSS. SPO2 - 96% ON 2 LPM VIA NC.
--- NOTE | 2019-07-02 15:15 | NUR ---
PATIENT CONFUSED, REFUSES TO KEEP ECG ATTACHED OR SPO2 ON. REORIENTED AND WILL CONTINUE TO MONITOR.
--- NOTE | 2019-07-02 17:04 | NUR ---
PATIENT INCONTINENT OF STOOL AND URINE. PATIENT CLEANED AND LINENS CHANGED. VSS. ATTEMPTED TO PLACE IV, UNSUCESSFUL.
--- NOTE | 2019-07-02 19:30 | NUR ---
PT AWAKE, CONFUSED, INCONTINENT OF BOWEL, CLEANED PER STAFF, LUNGS CLEAR, O2 @ 2L VIA N/C, RESITED 22G PIV TO LEFT WRIST, PT TOLERATED WELL, VITALS STABLE
[2019-07-03 03:00] VITALS: BP 114/97
[2019-07-03 04:02] LABS: BASOPHILS 0.4 % (0-2); EOSINOPHILS 0.6 % (0-7); HEMATOCRIT 46.3 % (42.0-54.0); HEMOGLOBIN 14.6 g/dL (13.5-17.5); IMMATURE GRANULOCYTES 0.3 % (0-5); LYMPHOCYTES 13.3 % (15-50); MCH 27.7 pg (26.0-34.0); MCHC 31.5 g/dL (31.0-37.0); MCV 87.7 fL (80.0-100.0); MEAN PLATELET VOLUME 10.4 fL (7.4-10.4); MONOCYTES 9.8 % (2-11); NEUTROPHILS 75.6 % (40-80); PLATELET COUNT 173 10x3/uL (130-400); RBC 5.28 10x6/uL (4.20-6.10); RDW 17.2 % (11.5-14.5); WBC 7.2 10x3/uL (4.8-10.8)
[2019-07-03 04:19] LABS: ANION GAP 14.8 mmol/L (8-16); BILIRUBIN - TOTAL 0.91 mg/dL (0.2-1.3); CALCIUM 8.5 mg/dL (8.5-10.1); CREATININE - SERUM 1.3 mg/dL (0.6-1.3); MAGNESIUM - SERUM 2.4 mg/dL (1.8-2.4); PHOSPHOROUS 3.8 mg/dL (2.5-4.9); POTASSIUM - SERUM 3.8 mmol/L (3.5-5.1); PROTEIN - SERUM 6.8 g/dL (6.4-8.2)
[2019-07-03 07:00] VITALS: BP 125/93
--- NOTE | 2019-07-03 08:51 | NUR ---
PPE DONNING PER POLICY, MEAL TRAY SERVED. PT ATTEMPTING TO GET OOB. ASSISTED TO BSC. PT VOIDS WITH OUT DIFFICULTY. ASSISTED BACK TO BED. ASSISTED WITH MEAL TRAY.
--- NOTE | 2019-07-03 10:29 | NUR ---
PT ATTEMPTING TO GET OOB. ASST TO BSC. PT GETTING AGGITATED. IS GLOBALLY CONFUSED. HALDOL GIVEN. ASSISTED BACK TO BED. POSITIONED FOR COMFORT.
[2019-07-03 11:00] VITALS: BP 122/85
--- NOTE | 2019-07-03 12:20 | NUR ---
ATTEMPTED TO FEED PT. PT REFUSED TO ALLOW THIS RN TO ASST. REPOSITIONED FOR COMFORT. DR GUERRERO AND DR TAYLOR HERE ON ROUNDS.
[2019-07-03 15:00] VITALS: BP 112/66
--- NOTE | 2019-07-03 16:46 | NUR ---
BATH AND LINENS CHANGED.
[2019-07-03 19:00] VITALS: BP 120/72
--- NOTE | 2019-07-03 19:00 | NUR ---
ASSESSMENT COMPLETED. VERY CONFUSED. UNABLE TO REORIENT.
--- NOTE | 2019-07-03 21:00 | NUR ---
CHG AND COMPLETE LINEN CHANGE GIVEN. BED WAS SOILED
[2019-07-03 23:00] VITALS: BP 127/89
--- NOTE | 2019-07-03 23:00 | NUR ---
PATIENT TRYING TO GET UP OOB. BED ALARM IS ON.
--- NOTE | 2019-07-04 01:00 | NUR ---
PATIENT CONT TO TRY TO GET UP, WILL LAY BACK DOWN QUICKLY WHEN NURSE GOES TO THE DOOR. CONFUSION CONT
[2019-07-04 03:00] VITALS: BP 122/70
--- NOTE | 2019-07-04 03:00 | NUR ---
LAYING IN BED. CONFUSED. WILL TRY TO GET UP AT TIMES
[2019-07-04 03:50] LABS: BASOPHILS 0.3 % (0-2); EOSINOPHILS 1.1 % (0-7); HEMATOCRIT 44.2 % (42.0-54.0); HEMOGLOBIN 13.8 g/dL (13.5-17.5); IMMATURE GRANULOCYTES 0.4 % (0-5); LYMPHOCYTES 10.4 % (15-50); MCH 27.3 pg (26.0-34.0); MCHC 31.2 g/dL (31.0-37.0); MCV 87.5 fL (80.0-100.0); MEAN PLATELET VOLUME 10.8 fL (7.4-10.4); MONOCYTES 9.9 % (2-11); NEUTROPHILS 77.9 % (40-80); PLATELET COUNT 175 10x3/uL (130-400); RBC 5.05 10x6/uL (4.20-6.10); RDW 17.2 % (11.5-14.5); WBC 7.5 10x3/uL (4.8-10.8)
[2019-07-04 04:03] LABS: ALBUMIN 2.9 g/dL (3.4-5.0); BILIRUBIN - TOTAL 1.02 mg/dL (0.2-1.3); CALCIUM 8.7 mg/dL (8.5-10.1); CARBON DIOXIDE 23.6 mmol/L (21.0-32.0); CREATININE - SERUM 1.2 mg/dL (0.6-1.3); MAGNESIUM - SERUM 2.4 mg/dL (1.8-2.4); PHOSPHOROUS 3.7 mg/dL (2.5-4.9); POTASSIUM - SERUM 3.6 mmol/L (3.5-5.1); PROTEIN - SERUM 6.5 g/dL (6.4-8.2)
--- NOTE | 2019-07-04 05:00 | NUR ---
PATIENT RESTING WITH EYES CLOSED, NOT TRYING TO GET OOB AT THIS TIME
[2019-07-04 07:00] VITALS: BP 115/74
--- NOTE | 2019-07-04 07:48 | NUR ---
PT RESTING QUIETLY, VSS.
--- NOTE | 2019-07-04 09:09 | NUR ---
PT RESTING QUIETLY. BREAKFAST TRAY SERVED AND PT REFUSING TO EAT AT PRESENT TIME. MEAL TRAY SET UP AND ENCOURAGED TO EAT. BED ALARM ON.
[2019-07-04 11:00] VITALS: BP 119/94
--- NOTE | 2019-07-04 11:22 | NUR ---
DR TAYLOR HERE ON ROUNDS.
--- NOTE | 2019-07-04 13:42 | NUR ---
PT CONTINUES TO BE RESTING QUIETLY. REPOSITIONED AND TURNED. PT AWAKENS EASILY. REFUSING TO EAT LUNCH. PUSHING STAFF AWAY AND STATES "LEAVE ME ALONE".
[2019-07-04 15:00] VITALS: BP 117/95
--- NOTE | 2019-07-04 17:03 | NUR ---
PT FEEDING SELF AFTER MEAL TRAY SET UP. ASSISTED WITH URINAL.
--- NOTE | 2019-07-04 18:10 | NUR ---
PT INC OF URINE. BATH AND LINENS CHANGED. PT DAVINA WELL.
--- NOTE | 2019-07-04 18:22 | NUR ---
SPOKE TO PTS SON RADHA PFEIFFER RE: CODE STATUS. REC'D A DNR. REPORTED TO DR GUERRERO. DNR ORDER REC'D.
[2019-07-04 19:00] VITALS: BP 116/80
--- NOTE | 2019-07-04 19:00 | NUR ---
SHIFT ASSESSMENT COMPELTED. PT CARE ASSUMED. MONITORS ON AND WORKING, VITALS STABLE, PT IN CONTROLLED AFIB ON MONITOR. PT CONFUSED AND DISORIENTED, HEARD OF HEARING. SEE FLOW SHEET FOR FURTHER DETAILS. WILL CONTINUE TO OBSERVE.
[2019-07-04 23:00] VITALS: BP 120/99
--- NOTE | 2019-07-04 23:00 | NUR ---
PT TURNED AND REPOSITIONED FOR COMFORT. MONITORS ON AND WORKING, VITALS STABLE. WILL CONTINUE TO OBSERVE.
[2019-07-05] VITALS (7 sets, daily range): BP systolic 105–123; BP diastolic 64–97
--- NOTE | 2019-07-05 03:00 | NUR ---
CHG BATH GIVEN, PADS CHANGED. MONITORS ON AND WORKING VITALS STABLE, WILL CONTINUE TO OBSERVE.
[2019-07-05 03:54] LABS: BASOPHILS 0.3 % (0-2); EOSINOPHILS 0.9 % (0-7); HEMATOCRIT 46.3 % (42.0-54.0); HEMOGLOBIN 14.7 g/dL (13.5-17.5); IMMATURE GRANULOCYTES 0.3 % (0-5); LYMPHOCYTES 11.3 % (15-50); MCH 27.7 pg (26.0-34.0); MCHC 31.7 g/dL (31.0-37.0); MCV 87.4 fL (80.0-100.0); MEAN PLATELET VOLUME 10.6 fL (7.4-10.4); MONOCYTES 7.9 % (2-11); NEUTROPHILS 79.3 % (40-80); PLATELET COUNT 202 10x3/uL (130-400); WBC 7.5 10x3/uL (4.8-10.8)
[2019-07-05 04:10] LABS: ALBUMIN 2.9 g/dL (3.4-5.0); ANION GAP 17.3 mmol/L (8-16); BILIRUBIN - TOTAL 1.1 mg/dL (0.2-1.3); CALCIUM 8.9 mg/dL (8.5-10.1); CARBON DIOXIDE 22.4 mmol/L (21.0-32.0); CREATININE - SERUM 1.2 mg/dL (0.6-1.3); POTASSIUM - SERUM 3.7 mmol/L (3.5-5.1); PROTEIN - SERUM 6.5 g/dL (6.4-8.2)
--- NOTE | 2019-07-05 05:00 | NUR ---
PT LYING IN BED RESTING, PT CONFUSED, DISORIENTED, HARD OF HEARING. EASY TO REDIRECT. WILL CONTINUE TO OBSERVE.
--- NOTE | 2019-07-05 07:15 | NUR ---
REPORT RECEIVED. PT ON DROPLET PRECAUTIONS FOR POSSIBLE COVID. PT PULLED IV OUT. CONFUSED. ATTEMPTED TO RESITE.
--- NOTE | 2019-07-05 09:30 | NUR ---
PT PLEASANTLY CONFUSED AT THIS TIME. VSS. WILL CONTINUE TO MONITOR.
--- NOTE | 2019-07-05 09:31 | NUR ---
Nutrition follow-up: Diet: low sodium PO intake continues to be poor. Nurse attempting to feed pt this am Labs reviewed Pt in droplet isolation Now DNR per family Wt: 134# Recommend ProcalAmine PPN @ 75 ml/hr if medically feasible. Pt has pulled out IV. RDN following.
--- NOTE | 2019-07-05 13:45 | NUR ---
PT FAMILY BROUGHT IN BATTERIES FOR HEARING AIDS. PLACED AT BEDSIDE. PT CURRENTLY RESTING QUIETLY.
--- NOTE | 2019-07-05 17:04 | NUR ---
PT CLEANED UP AND LINENS CHANGED. REPOSITIONED IN BED. TOOK MEDICATION WITH NO PROBLEM. NEW BATTERIES PLACED IN HEARING AIDS. VSS. WILL CONTINUE TO MONITOR.
--- NOTE | 2019-07-05 19:00 | NUR ---
SHIFT ASSESSMENT COMPLETED. PT CARE ASSUMED, MONITORS ON AND WORKING, VITALS STABLE, PT MORE ORIENTED THAN PREVIOUS SHIFT, SEE FLOW SHEET FOR FURTHER DETAILS. CALL LIGHT WITHIN REACH, WILL CONTINUE TO OBSERVE.
[2019-07-06 01:00] VITALS: BP 111/97
--- NOTE | 2019-07-06 01:00 | NUR ---
PT TURNED AND REPOSITIONED FOR COMFORT. MONITORS ON AND WORKING, VITALS STABLE. PT CLEANED AND LINEN CHANGE AT THIS TIME, WILL CONTINUE TO OBSERVE.
[2019-07-06 03:00] VITALS: BP 107/93
--- NOTE | 2019-07-06 03:00 | NUR ---
PT TURNED AND REPOSITIONED FOR COMFORT, MONITORS ON AND WORKING, VITALS STABLE, IV RESITED TO RIGHT FOREARM, PT DENIES ANY COMPLAINT OF PAIN OR DISCOMFORT, CALL LIGHT WITHIN REACH, CHG BATH AND LINEN CHANGE DONE AT THIS TIME, WILL CONTINUE TO OBSERVE.
[2019-07-06 03:32] LABS: HEMATOCRIT 45.8 % (42.0-54.0); HEMOGLOBIN 14.5 g/dL (13.5-17.5); LYMPHOCYTES 12.7 % (15-50); MCH 26.9 pg (26.0-34.0); MCHC 31.7 g/dL (31.0-37.0); MEAN PLATELET VOLUME 10.6 fL (7.4-10.4); NEUTROPHILS 76.6 % (40-80); PLATELET COUNT 183 10x3/uL (130-400); RBC 5.39 10x6/uL (4.20-6.10); RDW 17.4 % (11.5-14.5); WBC 6.1 10x3/uL (4.8-10.8)
[2019-07-06 03:43] LABS: ALBUMIN 2.7 g/dL (3.4-5.0); ANION GAP 14.3 mmol/L (8-16); BILIRUBIN - TOTAL 1.06 mg/dL (0.2-1.3); CALCIUM 8.6 mg/dL (8.5-10.1); CARBON DIOXIDE 22.5 mmol/L (21.0-32.0); CREATININE - SERUM 1.3 mg/dL (0.6-1.3); POTASSIUM - SERUM 3.8 mmol/L (3.5-5.1); PROTEIN - SERUM 6.3 g/dL (6.4-8.2)
[2019-07-06 05:00] VITALS: BP 108/95
[2019-07-06 08:00] VITALS: BP 122/73
--- NOTE | 2019-07-06 09:34 | NUR ---
0700 MAKING BEDSIIDE ROUNDS AND RECEIVED REPORT FROM DENISE MAINTAINING DROPLET ISOLATION ASSESSMENT COMPLETE
--- NOTE | 2019-07-06 09:36 | NUR ---
0900 REFUSING MORE THAT A FEW BITES BREAKFAST DIGGING HIS FINGERNAILS INTO NURSES ARM. KINDLY ASKING PT NOT HURT THE NURSE PULLING OFF BP CUFF ATTEMPTING TO FEED PATIENT TAKES ONLY A FEW BITES AND DECLINES MORE DOES TAKE HIS PO MEDICATION WITH SPOON
--- NOTE | 2019-07-06 09:44 | NUR ---
0950 DIAGNOSED WITH DEMENTIA AND EXHIBITING CONFUSION GIVING INAPPROPRIATE HAND SIGNALS DR GARCIA ROUNDING ON PATIENT AT PRESENT
[2019-07-06 11:00] VITALS: BP 119/65
--- NOTE | 2019-07-06 11:59 | NUR ---
5252 DR OMER DISCHARGED PATIENT HOME AFTER SPEAKING WITH HIS SON VIA PHONE
--- NOTE | 2019-07-06 14:49 | MORECARE ---
CASE MANAGEMENT DISCHARGE SUMMARY PATIENT: JUNIOR PFEIFFER UNIT: [id number] ADM DATE: 06/29/19 AGE: 83 : 34 SEX: M ROOM/BED: D.2314 AUTHOR: ZAN,DOC PHYSICIAN: REFERRING PHYSICIAN: DAVID SAMAYOA MD DATE OF SERVICE: 07/06/19 Discharge Plan Patient Name: JUNIOR PFEIFFER Facility: [facility]:[place] : 1935 Planned Disposition: Anticipated Discharge Date: Discharge Date: 07/06/2019 Expected LOS: Initial Reviewer: [email or web address] Initial Review Date: 06/29/2019 Generated: 07/06/19 3:49 pm Comments DCP- Discharge Planning Updated by [email or web address]: Cassie Barlow on 07/06/19 1:[address] CM contacted [facility] that patient is being discharged today. She stated that they will resume services and re-evaluate his needs. CM will fax d/c records. D/C IMM verbal consent via phone with patient's son Radha Pfeiffer. Daughter n-law will picking table worker patient. CM will continue to follow and assist as needed with discharge planning / needs. DCP- Discharge Planning Updated by [email or web address]: Cassie Barlow on 07/01/19 4:[address] Patient Name: JUNIOR PFEIFFER Admission Status: ER Accout number: [id number] Admission Date: 06-29-2019 : 1935 Admission Diagnosis: Attending: DAVID SAMAYOA Current LOS: 2 Anticipated DC Date: Planned Disposition: Primary Insurance: [employer] CHO[employer] PPO [facility] Discharge Planning Comments: CM spoke with son via phone after explaining CM role and obtaining verbal consent. Patient lives at home with his son Radha where he is independent with his care and plans to return there upon discharge. Radha feels this would be a safe discharge. CM discussed availability / needs of home health and medical equipment. Patient has home/ portable 02 with [employer]. Patient also has [facility] and they plan to resume care. BRIE signed Patient's son denies any discharge needs at this time. Family will drive him home upon discharge. CM will continue to follow and assist as needed with discharge planning / needs. Drophammer Operator: Cassie Barlow DCP- Discharge Planning Updated by [email or web address]: Cassie Barlow on 07/01/19 3:[address] Patient Name: JUNIOR PFEIFFER Admission Status: ER Accout number: [id number] Admission Date: 06-29-2019 : 1935 Admission Diagnosis: Attending: DAVID SAMAYOA Current LOS: 2 Anticipated DC Date: Planned Disposition: Primary Insurance: [employer] CHOICE PPO [employer] Discharge Planning Comments: Patient is confused and not allowed visitors d/t isolation precautions. CM attempted to call son listed as contact but received no answer CM left a message to call back for discharge planning assessment. CM will continue to follow and assist as needed with discharge planning needs. Drophammer Operator: Cassie Barlow DCPIA - Discharge Planning Initial Assessment Updated by [email or web address]: Cassie Cain on 07/01/19 5:01 pm * Is the patient Alert and Oriented? No * How many steps to enter\exit or inside your home? 2-3 * PCP [facility] * Pharmacy [facility] - [facility]IL [facility] * Preadmission Environment Home with Family * ADLs Independent * Other Equipment HOME / PORTABLE * List name and contact numbers for known caregivers / representatives who currently or will assist patient after discharge: RADHA PFEIFFER - SON - [phone] * Verbal permission to speak to the caregivers and representatives has been obtained from the patient. Yes * Community resources currently utilized Home Health * Please name any agencies selected above. [facility] * Additional services required to return to the preadmission environment? No * Can the patient safely return to the preadmission environment? Yes * Has this patient been hospitalized within the prior 30 days at any hospital? No External Providers External Provider: [facility] Next Contact Date: Service Request Date: Service Type: Resolution: Reviewer: Comments: Coverage Notice Reviewer: [id number] - Cassiemarj Monteror Notice Issued Date-Time: 07/06/2019 14:39 Notice Type: IM Discharge Notice Notice Delivered To: Family Member Relationship to Patient: Son [employer] Name: Delivery Method: PHONE - Phone Azalia Days: Prior Verbal Notification: Yes Recipient Understood Notice: Yes Recipient Signature: Med Rec Note Co-signed by Attending: Coverage Notice Comment: Last DP export: 07/01/19 4:15 p Patient Name: JUNIOR PFEIFFER Page [id number] at 1449 All edits/amendments must be made on the electronic document DICTATION DATE: 07/06/191448 ACCOUNTING MANAGER: JASS 07/06/191448 RPT#: [id number] DC DATE:07/06/19 STATUS: DIS IN [facility] [address] [place] [address] END OF REPORT
--- NOTE | 2019-07-06 15:39 | MORECARE ---
CASE MANAGEMENT DISCHARGE SUMMARY PATIENT: JUNIOR PFEIFFER UNIT: [id number] ADM DATE: 06/29/19 AGE: 83 : 34 SEX: M ROOM/BED: D.2314 AUTHOR: ZAN,DOC PHYSICIAN: REFERRING PHYSICIAN: DAVID SAMAYOA MD DATE OF SERVICE: 07/06/19 Discharge Plan Patient Name: JUNIOR PFEIFFER Facility: [facility]:[place] : 1935 Planned Disposition: Anticipated Discharge Date: Discharge Date: 07/06/2019 Expected LOS: Initial Reviewer: [email or web address] Initial Review Date: 06/29/2019 Generated: 07/06/19 4:38 pm Comments DCP- Discharge Planning Updated by [email or web address]: Cassie Barlow on 07/06/19 1:[address] CM contacted [facility] that patient is being discharged today. She stated that they will resume services and re-evaluate his needs. CM will fax d/c records. D/C IMM verbal consent via phone with patient's son Radha Pfeiffer. 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 CM will continue to follow and assist as needed with discharge planning / needs. DCP- Discharge Planning Updated by [email or web address]: Cassie Barlow on 07/01/19 4:[address] Patient Name: JUNIOR PFEIFFER Admission Status: ER Accout number: [id number] Admission Date: 06-29-2019 : 1935 Admission Diagnosis: Attending: DAVID SAMAYOA Current LOS: 2 Anticipated DC Date: Planned Disposition: Primary Insurance: [employer] CHOICE PPO [facility] Discharge Planning Comments: CM spoke with son via phone after explaining CM role and obtaining verbal consent. Patient lives at home with his son Radha where he is independent with his care and plans to return there upon discharge. Radha feels this would be a safe discharge. CM discussed availability / needs of home health and medical equipment. Patient has home/ portable 02 with [employer]. Patient also has [facility] and they plan to resume care. BRIE signed Patient's son denies any discharge needs at this time. Family will drive him home upon discharge. CM will continue to follow and assist as needed with discharge planning / needs. Electric Power Superintendent: Cassie Barlow DCP- Discharge Planning Updated by [email or web address]: Cassie Barlow on 07/01/19 3:[address] Patient Name: JUNIOR PFEIFFER Admission Status: ER Accout number: [id number] Admission Date: 06-29-2019 : 1935 Admission Diagnosis: Attending: DAVID SAMAYOA Current LOS: 2 Anticipated DC Date: Planned Disposition: Primary Insurance: [employer] CHOICE PPO [facility] Discharge Planning Comments: Patient is confused and not allowed visitors d/t isolation precautions. CM attempted to call son listed as contact but received no answer CM left a message to call back for discharge planning assessment. CM will continue to follow and assist as needed with discharge planning needs. Electric Power Superintendent: Cassie Barlow DCPIA - Discharge Planning Initial Assessment Updated by [email or web address]: Cassie Barlow on 07/01/19 5:01 pm * Is the patient Alert and Oriented? No * How many steps to enter\exit or inside your home? 2-3 * PCP [facility] * Pharmacy [facility] - [facility]IL ORDER * Preadmission Environment Home with Family * ADLs Independent * Other Equipment HOME / PORTABLE * List name and contact numbers for known caregivers / representatives who currently or will assist patient after discharge: RADHA PFEIFFER - SON - [phone] * Verbal permission to speak to the caregivers and representatives has been obtained from the patient. Yes * Community resources currently utilized Home Health * Please name any agencies selected above. [facility] * Additional services required to return to the preadmission environment? No * Can the patient safely return to the preadmission environment? Yes * Has this patient been hospitalized within the prior 30 days at any hospital? No Coverage Notice Reviewer: [id number] - Cassie Barlow Notice Issued Date-Time: 07/06/2019 14:39 Notice Type: IM Discharge Notice Notice Delivered To: Family Member Relationship to Patient: Son [employer] Name: Delivery Method: PHONE - Phone [place] Days: Prior Verbal Notification: Yes Recipient Understood Notice: Yes Recipient Signature: Med Rec Note Co-signed by Attending: Coverage Notice Comment: Last DP export: 07/06/19 1:49 p Patient Name: JUNIOR PFEIFFER Page [id number] at 1539 All edits/amendments must be made on the electronic document DICTATION DATE: 07/06/198 OPERATIONS ASSOCIATE: JASS 07/06/19 1538 RPT#: [id number] DC DATE:07/06/19 STATUS: DIS IN [facility] [address] [place] [address] END OF REPORT
== END 2019-07-06 14:03 | disposition home health service (06) | DRG 193 ==
LOC: D.ER 17:53 → D.M2 22:21 → D.ICU 22:21
PROVIDERS: Emergency Medicine; Family Medicine; ADMIT Family Medicine; ATTEND Family Medicine
DX: J18.9 Pneumonia, unspecified organism (principal); J96.21 Acute and chronic respiratory failure with hypoxia; I50.33 Acute on chronic diastolic (congestive) heart failure; G93.41 Metabolic encephalopathy; I48.20 Chronic atrial fibrillation, unspecified; J98.11 Atelectasis; I11.0 Hypertensive heart disease with heart failure; Z20.818 Contact with and (suspected) exposure to other bacterial communicable diseases; J44.9 Chronic obstructive pulmonary disease, unspecified; E78.5 Hyperlipidemia, unspecified; M19.90 Unspecified osteoarthritis, unspecified site; J45.909 Unspecified asthma, uncomplicated; F41.9 Anxiety disorder, unspecified; R50.9 Fever, unspecified; G47.33 Obstructive sleep apnea (adult) (pediatric); I71.2 Thoracic aortic aneurysm, without rupture

== ENCOUNTER 2019-07-08 15:39 | Emergency (ER) | payer MEDICARE ==
[~2019-07-08] VITALS: Ht 170.2 cm; Wt 65.9 kg
[2019-07-08 15:40] VITALS: BP 115/75; Ht 170.2 cm; Wt 65.9 kg
== END 2019-07-08 19:14 | disposition home or self-care (01) ==
LOC: D.ER 15:39
DX: G30.9 Alzheimer's disease, unspecified (principal); F02.80 Dementia in other diseases classified elsewhere, unspecified severity, without behavioral disturbance, psychotic disturbance, mood disturbance, and anxiety; Z51.5 Encounter for palliative care; R62.7 Adult failure to thrive; I10 Essential (primary) hypertension; I48.91 Unspecified atrial fibrillation; J44.9 Chronic obstructive pulmonary disease, unspecified; K21.9 Gastro-esophageal reflux disease without esophagitis; Z99.81 Dependence on supplemental oxygen